=== PATIENT | male | born 1965 | race Caucasian/White ===

== ENCOUNTER 2020-04-29 11:15 | Emergency (ER) | payer OTHER, SELFPAY ==
[2019-08-09 10:26] VITALS: BMI 40.0
[2020-04-29 11:16] VITALS: BP 151/92; PULSE 77; RESP 16; TEMP 36.5; O2SAT 97; BMI 33.5
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
[2020-04-29] MEDS: Diphth,Pertuss(Acell),Tet Vac 0.5 ML Vial IM (11:35)
[2020-04-29] MEDS: BACITRACIN 15 GM Tube 1 APPLIC TOPICAL (11:36)
[2020-04-29 11:53] VITALS: BP 134/81; PULSE 62; RESP 16; O2SAT 96
== END 2020-04-29 11:54 | disposition home or self-care (01) ==
LOC: ED 11:31
PROVIDERS: Emergency Provider Emergency Medicine; PCP Family Medicine
DX: T24.001A Burn of unspecified degree of unspecified site of right lower limb, except ankle and foot, initial encounter (principal); X08.8XXA Exposure to other specified smoke, fire and flames, initial encounter
CPT/HCPCS: 90471; 90715; 99283

== ENCOUNTER → 2022-08-22 | Outpatient (CLI) | payer OTHER, SELFPAY ==
[2022-08-22 09:32] LABS: AST(SGOT) 21 U/L (15-37); Alanine Aminotransfer ALT/SGPT 39 U/L (16-61); Albumin, Serum 3.7 g/dL (3.2-5.0); Alkaline Phosphatase 119 U/L (45-117); Bilirubin, Direct 0.24 mg/dL (0.00-0.30); Cholesterol 110 mg/dL (200); Globulin 3.2 g/dL (2.2-4.2); High Density Lipoprotein 36 mg/dL; Protein, Total 6.9 g/dL (6.4-8.2); Triglycerides 131 mg/dL; Very Low Density Lipoprotein 26 mg/dL (5-40)
== END | disposition home or self-care (01) ==
LOC: LAB 08:17
PROVIDERS: PCP Family Medicine; Referring Provider Nurse Practitioner Family; Visit Provider Nurse Practitioner Family
DX: E78.00 Pure hypercholesterolemia, unspecified (principal)
CPT/HCPCS: 36415; 80061; 80076

== ENCOUNTER → 2022-10-06 | Outpatient (CLI) | payer OTHER, SELFPAY ==
--- NOTE | 2022-10-06 11:27 | STRESSREP ---
Stress Test Report Exercise myocardial perfusion stress test. 57-year-old man with a history of coronary artery disease. Stress protocol: Resting EKG demonstrates normal sinus rhythm with a rate of 70 bpm resting blood pressure is 134/82 mmHg. The patient exercised according to the regular [facility] protocol for a total duration of 6 minutes and 17 seconds attaining a maximum heart rate of 150 bpm which was 92% of max impacted heart rate the maximum workload was 7.8 metabolic equivalents. At rest there were no ST or T wave changes noted suggest ischemia and at peak exercise upsloping ST changes only were noted we did not meet the criteria for ischemia. No clinical angina was noted the test was terminated due to the target heart rate being achieved. The peak blood pressure was 186/80 mmHg. Rate-pressure product was 26,200. Myocardial perfusion protocol. 11.3 mCi of technetium 99m sestamibi was injected at rest. The patient exercised according to regular [facility] protocol for total duration of 6 minutes and 17 seconds and at peak exercise 33.7 mCi of technetium 99m sestamibi was injected stress images were obtained stress and rest images were reconstructed in comparing the short axis vertical long and horizontal long axis. Gated images were also obtained. Perfusion SPECT analysis: Review of the stress images demonstrate normal uptake of tracer noted in all areas of the myocardium. The resting images similarly demonstrate normal uptake of tracer noted in all areas of the myocardium. No areas of reversibility are noted to suggest ischemia no previous infarct was noted. A small apical defect was noted and an infarct cannot be completely excluded. Gated SPECT analysis: The gated ejection fraction is 65%. Conclusion: Normal exercise myocardial perfusion stress test at a moderate workload. Preserved ejection fraction.
== END | disposition home or self-care (01) ==
PROVIDERS: PCP Family Medicine; Visit Provider Internal Medicine Cardiovascular Disease
DX: I25.10 Atherosclerotic heart disease of native coronary artery without angina pectoris (principal); Z95.5 Presence of coronary angioplasty implant and graft
CPT/HCPCS: 78452; 93017; A9500; A4216

== ENCOUNTER → 2023-08-21 | Outpatient (CLI) | payer BC, SELFPAY ==
[2023-08-21 08:29] LABS: AST(SGOT) 24 U/L (15-37); Alanine Aminotransfer ALT/SGPT 53 U/L (16-61); Albumin, Serum 3.9 g/dL (3.2-5.0); Alkaline Phosphatase 75 U/L (45-117); Bilirubin, Direct 0.19 mg/dL (0.00-0.30); Cholesterol 139 mg/dL (200); High Density Lipoprotein 41 mg/dL; Protein, Total 6.9 g/dL (6.4-8.2); Triglycerides 215 mg/dL; Very Low Density Lipoprotein 43 mg/dL (5-40)
== END | disposition home or self-care (01) ==
LOC: LAB 07:43
PROVIDERS: PCP Family Medicine; Referring Provider Nurse Practitioner Family; Visit Provider Nurse Practitioner Family
DX: E78.00 Pure hypercholesterolemia, unspecified (principal)
CPT/HCPCS: 36415; 80061; 80076

== ENCOUNTER → 2025-05-08 | Outpatient (CLI) | payer BC, SELFPAY ==
--- OUTSIDE RECORDS SUMMARY | 2025-05-08 07:24 | XMS RPT_ITS | CCD ---
Author Organization [facility] ion [facility] Care Team Providers Care Co Founder & Ceo Name Role Phone MD Meza Cyril S Unavailable Jannette Amaya Unavailable Jannette Amaya Unavailable Rachanais Harumi Y Unavailable Unavailable Sixto Harumi Y Unavailable Unavailable Naila Waggoner Unavailable Deirdre Monzon Unavailable Unavailable Dr. Naila Waggoner Primary Care Provider [phone]. Naila Waggoner Referring Provider Dr. Saman Meza Attending Provider Dr. Saman Meza Other Provider Ms. Deirdre Monzon Attending Unava ilable Dr. Naila Waggoner Primary Care Unavaila ble Unavailable Primary Care Provider Unavailsolomon e Unavailable Primary Care Provider UnavailNAILA Gomez Primary Care Unavailable BALTAZAR RIVERA Attending Unavailable COOPERRIDER IIANDRE Attending Unavailabl e COOPERRIDER IIANDRE Referring Unavailabl e COOPERRIDER IIANDRE Referring Unavailabl e COOPERRIDER II, ANDRE Anderson Attending Unavailabl e SELF Referring Unavailable COOPERRIDER IIANDRE Attending Unavailabl e Roof MEAT CURERAneudy Attending Unavailable Care Physician, No Primary Referring Unava ilable Care Physician, No Primary Primary Care Unava ilable Medications Current Medications Medication Drug Class(es) Dates Sig (Normalized) Sig (Original) aspirin 81 mg delayed release oral tablet (9 sources) Nonsteroidal Anti-inflammatory Drug Start: 01-13-2018 Aspirin (Adult Low Dose Aspirin) 81 mg tablet,delayed release (DR/EC) Active 81 MG PO daily January 13, 2018 1:00am Start: 06-09-2014 take 1 tablet by luis a th once daily ASPIRIN 81 MG TABS One tablet by mouth daily ASPIRIN [id number] Didi Sharp RN Start: 06-09-2014 take 1 tablet by luis a th once daily ASPIRIN 81 MG TABS One tablet by mouth daily ASPIRIN Didi Sharp RN benoxinate hydrochloride 4 mg/ml / fluorescein sodium 3 mg/ml ophthalmic solution (4 sources) Diagnostic Dye Start: 06-22-2024 End: 06-22-2024 fluorescein-benoxinate 0.3-0.4 % 1 Drop (FLURESS) Start: 06-15-2024 End: 06-15-2024 fluorescein-benoxinate 0.3-0 .4 % 1 Drop (FLURESS) bimatoprost 0.1 mg/ml ophthalmic solution (3 sources) Prostaglandin Analog Start: 12-17-2020 take 1 drop(s) into the eye(s) once daily at bedtime bimatoprost (LUMIGAN) 0.01 % drop ophthalmic drops Use 1 Drop in both eyes daily at bedtime. 1 Bottle 12/17/2020 Active clopidogrel 75 mg oral tablet (20 sources) P2Y12 Platelet Inhibitor Start: 06-09-2014 End: 07-31-2023 take 75 mg by mouth once daily Clopidogrel Active 75 MG PO daily July 31, 2023 11:31am CLOPIDOGREL BISU LFATE (CLOPIDOGREL ORAL) Take by mouth. Active CLOPIDOGREL BISU LFATE (CLOPIDOGREL ORAL) Take by mouth. 0 Active metoprolol tartrate 25 mg oral tablet (20 sources) beta-Adrenergic Taylor Start: 06-27-2024 take 1 tablet by mouth every twelve hours metoprolol tartrate (Lopressor) 25 mg tablet Take 1 tablet (25 mg) by mouth every 12 hours. 06/27/2024 Active Start: 10-29-2020 metoprolol tar trate, short acting, (LOPRESSOR) 25 mg tablet once daily. 10/29/2020 Active Start: 06-09-2014 End: 07-31-2023 take 25 mg by mouth twice daily Metoprolol Tartrate Ac tive 25 MG PO TWICE A DAY July 31, 2023 11:31am predniSONE 10 mg oral tablet (1 source) Start: 08-24-2024 take 4 tablets by mouth once daily, then take 3 tablets by mouth once daily, then take 2 tablets by mouth once daily, then take 1 tablet by mouth once daily predniSONE (Deltasone) 10 mg tablet Indications: Irritant contact dermatitis due to plants, except food 4 tabs po daily x 3 days, then 3 tabs po daily x 3 days, then 2 tab po daily x3 days, then 1 tab po daily x 3 days 30 tablet 08/24/2024 Active Start: 08-24-2024 take 4 tablets by mo [facility] once daily, then take 3 tablets by mouth once daily, then take 2 tablets by mouth once daily, then take 1 tablet by mouth once daily predniSONE (Deltasone) 10 mg tablet Indications: Irritant contact dermatitis due to plants, except food 4 tabs po daily x 3 days, then 3 tabs po daily x 3 days, then 2 tab po daily x3 days, then 1 tab po daily x 3 days 30 tablet 08/24/2024 Active Propylene glycol (3 sources) propylene glycol (SYSTANE COMPLETE OPHTHALMIC) Use in eyes. Active propylene glycol (SYSTANE COMPLETE OPHTHALMIC) Use in eyes. 0 Active rosuvastatin calcium 40 mg oral tablet (6 sources) HMG-CoA Reductase Inhibitor Start: 03-28-2024 take 1 tablet by mouth in the morning rosuvastatin (Crestor) 40 mg tablet Take 1 tablet (40 mg) by mouth early in the morning.. 06/27/2024 Active Start: 09-11-2022 take 1 tablet by [facility] once daily Rosuvastatin (Crestor) 40 mg tablet Active 40 MG PO DAILY September 11, 2022 12:00am sildenafil 100 mg oral tablet (1 source) Phosphodiesterase 5 Inhibitor Start: 10-02-2023 sildenafil (Viagra) 100 mg tablet 10/02/2023 Active tetracaine hydrochloride 5 mg/ml ophthalmic solution (2 sources) Priyanka [facility]est[facility] Start: 06-22-2024 End: 06-22-2024 tetracaine 0.5 % 1 Drop (OPTICAINE) triamcinolone acetonide 5 mg/ml topical cream (1 source) Corticosteroid Start: 08-24-2024 triamcinolone (Kenalog) 0.5 % cream Indications: Irritant contact dermatitis due to plants, except food Apply topically 3 times a day. 30 g 08/24/2024 Active Start: 08-24-2024 triamcinolone (Kenalog) 0.5 % cream Indications: Irritant contact dermatitis due to plants, except food Apply topically 3 times a day. 30 g 08/24/2024 Active tropicamide 5 mg/ml ophthalmic solution (2 sources) Anticholinergic Start: 06-15-2024 End: 06-15-2024 tropicamide 0.5 % 1 Drop (MYDRIACYL) Completed/Discontinued Medications Medication Drug Class(es) Dates Sig (Normalized) Sig (Original) atorvastatin 80 mg oral tablet (20 sources) HMG-CoA Reductase Inhibitor Start: 06-09-2014 End: 09-11-2022 take 80 mg by mouth once daily Atorvastatin Discontinued 80 MG PO daily July 24, 2022 12:45pm September 11, 2022 4:03pm ATORVASTATIN ISREAL CIUM (ATORVASTATIN ORAL) Take by mouth. Active ATORVASTATIN ISREAL CIUM (ATORVASTATIN ORAL) Take by mouth. 0 Active bacitracin zinc 0.5 unt/mg topical ointment (3 sources) Start: 04-29-2020 End: 08-09-2020 Bacitracin Zinc Discontinued 1 APPLIC TOPICAL TWICE A DAY 2 April 29, 2020 12:00am August 09, 2020 4:08pm lisinopril 2.5 mg oral tablet (10 sources) Angiotensin Converting Enzyme Inhibitor Start: 06-09-2014 End: 10-31-2014 take 1 tablet by mouth once daily LISINOPRIL 2.5 MG TABS One tablet by mouth daily LISINOPRIL [id number] Saman Meza MD Problems Active Problems Problem Classification Problem Date Documented Date Episodic/Chronic Acute myocardial infarction (8 sources) Myocardial infarction; Translations: [Non-ST elevation (NSTEMI) myocardial infarction] Onset: 05-22-2014 05-26-2014 Chronic Allergic reactions (3 sources) Irritant contact dermatitis due to plant; Translations: [Irritant contact dermatitis due to plants, except food] Onset: 08-24-2024 08-24-2024 Episodic Cataract (10 sources) Bilateral pseudophakia; Translations: [Presence of intraocular lens] Onset: 11-12-2020 Resolved: 11-23-2020 06-15-2024 Chronic Coronary atherosclerosis and other heart disease (20 sources) 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; Translations: [Old myocardial infarction] Onset: 05-26-2014 01-07-2017 Chronic Disorders of lipid metabolism (11 sources) Hyperlipidemia; Translations: [Hyperlipidemia, unspecified] Onset: 05-30-2014 05-30-2014 Chronic Essential hypertension (3 sources) Essential hypertension; Translations: [Essential (primary) hypertension] Onset: 11-12-2020 11-12-2020 Chronic Glaucoma (5 sources) Ocular hypertension, bilateral; Translations: [Ocular hypertension] 06-15-2024 Chronic Inflammation; infection of eye (except that caused by tuberculosis or sexually transmitteddisease) (3 sources) Bilateral punctate keratitis of eyes; Translations: [Punctate keratitis, bilateral] Onset: 06-17-2021 06-17-2021 Chronic Other eye disorders (3 sources) Bilateral vitreous floaters; Translations: [Other vitreous opacities, bilateral] Onset: 06-17-2021 06-17-2021 Chronic Other eye disorders (3 sources) Bilateral posterior vitreous detachment; Translations: [Vitreous degeneration, bilateral] Onset: 06-17-2021 06-17-2021 Chronic Other injuries and conditions due to external causes (1 source) Foreign body in ear; Translations: [Foreign body in ear] 06-14-2022 Episodic Other nutritional; endocrine; and metabolic disorders (16 sources) Body mass index (BMI) 34.0-34.9, adult; Translations: [Body mass index (BMI) 35.0-35.9, adult] Onset: 06-09-2014 Resolved: 05-14-2015 10-31-2014 Chronic Other nutritional; endocrine; and metabolic disorders (4 sources) Body mass index (BMI) 35.0-35.9, adult; Translations: [Body mass index (BMI) 36.0-36.9, adult] Onset: 06-09-2014 07-20-2014 Chronic Other nutritional; endocrine; and metabolic disorders (2 sources) Obesity; Translations: [Obesity, unspecified] 09-11-2022 Chronic Unclassified (3 sources) Placement of stent in coronary artery ; Translations: [Presence of other cardiac implants and grafts] Onset: 05-26-2014 01-07-2017 Unclassified (6 sources) Long-term drug therapy; Translations: [Other extermination inspector (current) drug therapy] Onset: 06-23-2014 Resolved: 08-10-2015 08-10-2015 Unclassified (2 sources) LEFT EAR FOREIGN OBJECT 06-14-2022 Comment on above: LEFT EAR FOREIGN OBJ ECT Unclassified (1 source) Non-penetrating foreign body in left ear canal, initial encounter 06-14-2022 Past or Other Problems Problem Classification Problem Date Documented Da te Episodic/Chronic Blindness and vision defects (9 sources) Presbyopia; Translations: [Presbyopia] Onset: 03-24-2017 Resolved: 11-23-2020 06-15-2024 Episodic Coronary atherosclerosis and other heart disease (6 sources) Coronary angioplasty status; Translations: [Presence of coronary angioplasty implant and graft] Onset: 05-23-2014 05-26-2014 Episodic E Codes: Cut/pierceb (1 source) Other foreign body or object entering through skin, initial encounter; Translations: [Oth foreign body or object entering through skin, init] Onset: 06-14-2022 Episodic E Codes: Unspecified (1 source) Activity, other involving exterior property and land maintenance, building and construction; Translations: [Actvty,oth w exter property land maint, bldg and construct] Onset: 06-14-2022 Episodic Inflammation; infection of eye (except that caused by tuberculosis or sexually transmitteddisease) (3 sources) Allergic conjunctivitis; Translations: [Acute atopic conjunctivitis, unspecified eye] Onset: 02-19-2017 Resolved: 03-24-2017 03-24-2017 Episodic Other aftercare (9 sources) Long-term (current) use of other medications; Translations: [Other extermination inspector (current) drug therapy] Onset: 06-23-2014 Resolved: 08-10-2015 06-23-2014 Episodic Other eye disorders (3 sources) H/O: L cataract extraction; Translations: [Cataract extraction status, left eye] Onset: 11-16-2020 11-16-2020 Episodic Other eye disorders (3 sources) H/O: R cataract extraction; Translations: [Cataract extraction status, right eye] Onset: 11-24-2020 11-24-2020 Episodic Other injuries and conditions due to external causes (1 source) Foreign body in left ear, initial encounter; Translations: [Foreign body in left ear, initial encounter] Onset: 06-14-2022 Episodic Other injuries and conditions due to external causes (3 sources) Foreign body in left cornea; Translations: [Foreign body in cornea, left eye, initial encounter] Onset: 02-19-2017 Resolved: 03-24-2017 03-24-2017 Episodic Other male genital disorders (3 sources) H/O: male genital disorder; Translations: [Personal history of other diseases of male genital organs] Onset: 11-12-2020 11-12-2020 Episodic Other nutritional; endocrine; and metabolic disorders (5 sources) Body mass index (BMI) 27.0-27.9, adult; Translations: [Body mass index (BMI) 27.0-27.9, adult] Onset: 06-09-2014 06-26-2016 Episodic Superficial injury; contusion (4 sources) Superficial foreign body of left ear, initial encounter; Translations: [Abrasion of cornea of right eye] Onset: 07-31-2016 Resolved: 02-19-2017 02-19-2017 Episodic Results Test Name Value Interpretation Reference Range Facility Cardiology Visit Reporton Cardiology Visit Report [facility] [address] [place] [address] OFFICE VISIT Date of Service: 03/01/25 MR#: [id number] Acct: [id number] Name: MELITA BELLA Rep #: [id number] : 1965 Provider: DEBORAH encinas Age/Sex: 60/M Location: [facility] Status: Signed HPI HPI History of Present Illness Details: MELITA BELLA, is a 59 M who presents to the office today for a follow-up visit. He is a gentleman with a history of non-ST elevation myocardial infarction with angioplasty and stenting of his mid to distal right coronary artery in May 2014. He also has a history of hyperlipidemia. He complains of some myalgias from the Lipitor and wants to know whether he can switch to another agent. He denies chest, arm, jaw, or neck discomfort. He denies palpitations. He states bilateral lower extremity edema. He denies claudication. He denies shortness of breath with activity, shortness of breath at rest, orthopnea, or PND. He denies chronic cough. He denies significant, sudden weight gain. He denies lightheadedness, dizziness, near-syncope, or syncope. He denies blood in urine, blood in stool, or epistaxis. He denies fever with chills. He denies myalgia. He denies fatigue. His exercise level has remained stable. 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 Is patient in pain?: No Allergies No Known Allergies Allergy (Verified 03/01/25 08:31) Medications ???Medication ???Instructions ???Recorded ???Confirmed ???Type aspirin 81 mg tablet,delayed 81 mg PO QDAY 01/13/18 03/01/25 Hi story release (Adult Low Dose Aspirin) metoprolol tartrate 25 mg tablet 25 mg PO BID #180 tabs 06/27/24 Rx rosuvastatin 40 mg tablet (Crestor) 40 mg PO DAILY #90 tabs 4 03/01/25 Rx amlodipine 5 mg tablet 5 mg PO DAILY #90 tabs 03/01/25 Rx Ejection fraction %: 60 Have you fallen in the past year?: No PFSH Medical History Obesity NSTEMI (non-ST elevated myocardial infarction) (05/22/14) 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 Hyperlipidemia Surgical History History of coronary artery stent placement (05/23/14) Social History Smoking Status: Never smoker alcohol intake: current alcohol intake frequency: a few times a week Alcohol type: beer and hard liquor substance use type: does not use caffeine: Yes Type: carbonated beverages and coffee what type of physical activity do you participate in: walking frequency: 1-2 times per week duration: 45-60 minutes/day seatbelt use: sometimes do you feel safe at home: Yes ROS Const Const: Negative for fatigue, weakness, headache(s) or frequent falls Eyes Eyes: Negative for blurry vision ENT ENT: Negative for headache(s), dizziness or Nosebleed/epistaxis Cardio Chest Pain: No Palpitations: No Edema: Bilateral Muscle aches with walking: None Resp Respiratory: Positive for snoring; Negative for SOB with activity, SOB at rest or SOB orthopnea SOB lying down GI GI: Negative nausea, vomiting, heartburn, bright, red blood in stools or black,tarry stools : Negative for hematuria Musc Musc: Negative for muscle aches/ myalgia Skin Skin: Negative non-healing lesions or rash Neuro Neuro: Negative for dizziness, lightheadedness, near syncope, syncope, frequent falls, headache(s), weakness or blurry vision Endo Endo: Negative for fatigue Allergy Allergy/Immunology: Negative for rash Cardiology Exam Const Appearance: cooperative, healthy appearing, comfortable and no acute distress Nutritional Appearance: well nourished and obese Orientation: alert, awake and oriented x3 Head Head: normal to inspection Ears: hearing grossly normal bilaterally Nose: external nose normal Face and Sinus: face symmetric Mouth: moist mucous membranes Eyes General: appearance normal, both eyes and all related structures Eyelids: eyelids normal EOM: EOM intact bilaterally Neck Neck: normal visual inspection and no JVD Carotids: normal carotid upstroke Chest Chest inspection: normal inspection of the chest, symmetric chest movement and normal respiratory effort; Negative cough Auscultation: Bilateral: Clear to Auscultation Cardio Rate: regular rate Rhythm: regular rhythm Heart sounds: S1 normal and S2 normal; Negative rub, gallop or murmur GI GI: normal to ins (more content not included)... Normal [facility] Hepatic function 2000 panelo n 09-30-2024 Albumin BCP dye [Mass/Vol] 4.3 g/dL Normal 3.4-5.[address] [facility] Comment on above: Performed By: #### 2 4325-3 #### HALLMAN FELISHA ([id number]) [facility] ([facility]) [address] [place] [address] ALP [Catalytic activity/Vol] 70 U/L Normal 33-[address] [facility] Comment on above: Performed By: #### 2 4325-3 #### LEXX BAEZA ([id number]) [facility] ([facility]) [address] [place] [address] ALT With P-5'-P [Catalytic activity/Vol] 35 U/L Normal 10-[address] [facility] Comment on above: Result Comment: Susanna ents treated with Sulfasalazine may generate falsely decreased results for ALT. Performed By: #### 2 4325-3 #### LEXX BAEZA ([id number]) [facility] ([facility]) [address] [place] [address] AST With P-5'-P [Catalytic activity/Vol] 22 U/L Normal 9-[address] [facility] Comment on above: Performed By: #### 2 4325-3 #### LEXX BAEZA ([id number]) [facility] ([facility]) [address] [place] [address] Bilirubin [Mass/Vol] 0.9 mg/dL Normal 0.0-1.2 [facility] Comment on above: Performed By: #### 2 5-3 #### LEXX BAEZA ([id number]) [facility] ([facility]) [address] [place] [address] Bilirubin.direct [Mass/Vol] 0.1 mg/dL Normal 0.0-0.[address] [facility] Comment on above: Performed By: #### 2 5-3 #### LEXX BAEZA ([id number]) [facility] ([facility]) [address] [place] [address] Protein [Mass/Vol] 6.1 g/dL Low 6.4-8.2 [facility] Comment on above: Performed By: #### 2 4325-3 #### LEXX BAEZA ([id number]) [facility] ([facility]) [address] [place] [address] Lipid 1996 panelon 4 Cholesterol [Mass/Vol] 145 mg/dL Normal 0-[address] [facility] Comment on above: Result Comment: Age Desirable Borderline High High 0-19 Y 0 - 169 170 - 199 >/= 200 20-24 Y 0 - 189 190 - 224 >/= 225 >24 Y 0 - 199 200 - 239 >/= 240 All ranges are based on fasting samples. Specific therapeutic targets will vary based on patient-specific cardiac risk. Pediatric guidelines reference:Pediatrics 2011, 128(S5).Adult guidelines reference: NCEP ATPIII Guidelines,LOIS 2001, 258:2486-97 Venipuncture immediately after or during the administration of Metamizole may lead to falsely low results. Testing should be performed immediately prior to Metamizole dosing. Performed By: #### 2 4331-1 #### LEXX BAEZA ([id number]) [facility] ([facility]) [address] [place] [address] Cholesterol in HDL [Mass/Vol] 35.0 mg/dL Normal [facility] Comment on above: Result Comment: Age Very Low Low Normal High 0-19 Y < 35 < 40 40-45 ---- 20-24 Y ---- < 40 >45 ---- >24 Y ---- < 40 40-60 >60 Performed By: #### 2 4331-1 #### LEXX BAEZA ([id number]) [facility] ([facility]) [address] [place] [address] Cholesterol in LDL [Mass/Vol] 62 mg/dL Normal <=[address] [facility] Comment on above: Result Comment: Near Borderline AGE Desirable Optimal High High Very High 0-19 Y 0 - 109 --- 110-129 >/= 130 ---- 20-24 Y 0 - 119 --- 120-159 >/= 160 ---- >24 Y 0 - 99 100-129 130-159 160-189 >/=190 Performed By: #### 2 4331-1 #### LEXX BAEZA ([id number]) [facility] ([facility]) [address] [place] [address] Cholesterol in VLDL [Mass/Vol] 48 mg/dL High 0-[address] [facility] Comment on above: Performed By: #### 2 4331-1 #### LEXX BAEZA ([id number]) [facility] ([facility]) [address] [place] [address] CHOLESTEROL/HDL RATIO 4.1 Normal [facility] Comment on above: Result Comment: Ref Values Desirable < 3.4 High Risk > 5.0 Performed By: #### 2 4331-1 #### LEXX BAEZA ([id number]) [facility] ([facility]) [address] [place] [address] NON HDL CHOLESTEROL 110 mg/dL Normal 0-149 [facility] Comment on above: Result Comment: Age Desirable Borderline High High Very High 0-19 Y 0 - 119 120 - 144 >/= 145 >/= 160 20-24 Y 0 - 149 150 - 189 >/= 190 ---- >24 Y 30 mg/dL above LDL Cholesterol goal Performed By: #### 2 4331-1 #### LEXX BAEZA ([id number]) [facility] ([facility]) [facility] [place] [address] Triglyceride [Mass/Vol] 240 mg/dL High 0-[address] [facility] Comment on above: Result Comment: Age Desirable Borderline High Very High SEX:B mg/dL mg/dL mg/dL mg/dL <=14D 86-277 ---- ---- ---- 15D-365D 55-277 ---- ---- ---- 1Y-9Y 0-74 75-99 >=100 ---- 10Y-19Y 0-89 90-129 >=130 ---- 20Y-24Y 0-114 115-149 >=150 ---- >= 25Y 0-149 150-199 200-499 >=500 Venipuncture immediately after or during the administration of Metamizole may lead to falsely low results. Testing should be performed immediately prior to Metamizole dosing. Performed By: #### 2 4331-1 #### LEXX BAEZA ([id number]) [facility] ([facility]) [facility] [place] [address] OCT OPTIC NERVE CIRRUS OU (B OTH EYES)on 06-22-2024 [facility] Radiology Study observation (narrative) [facility] VISUAL FIELD 24-2 OU (BOTH E YES)on 06-22-2024 [facility] Radiology Study observation (narrative) [facility] Basophil percentageOrdered B y: Aneudy Gonzales on 08-21-2023 Bilirubin [Mass/Vol] 0.80 mg/dL 0.20-1.00 [facility] Comment on above: For patients on eltr ombopag therapy, use of Dimension [place] TBIL is not recommended. Cholesterol [Mass/Vol] 139 mg/dL <200 [facility] Comment on above: <200 mg/dL Desirable 200-240 mg/dL Borderline >240 mg/dL High Risk Protein [Mass/Vol] 6.9 g/dL 6.4-8.2 [facility] Triglyceride [Mass/Vol] 215 mg/dL <199 [facility] Comment on above: The drugs N-Acetylcy steine and Metamizole may falsely depress this assay.Serum Triglycerides Reference Interval Normal <150 mg/dL Borderline high 150 - 199 mg/dL High 200 - 499 mg/dL Very High > or = 500 mg/dL Direct bilirubinOrdered By: Aneudy Gonzales on 08-21-2023 Bilirubin.direct [Mass/Vol] 0.19 mg/dL 0.00-0.30 [facility] Laboratory - Chemistry and C hemistry - challengeOrdered By: Aneudy Gonzales on 08-21-2023 ALP [Catalytic activity/Vol] 75 U/L 45-117 [facility] ALT [Catalytic activity/Vol] 53 U/L 16-61 [facility] Globulin (S) [Mass/Vol] 3.0 g/dL 2.2-4.2 [facility] Serum or plasma albumin janice urement (mass/volume)Ordered By: Aneudy Gonzales on 08-21-2023 Albumin [Mass/Vol] 3.9 g/dL 3.2-5.0 [facility] Serum or plasma cholesterol in HDL measurement (mass/volume)Ordered By: Aneudy Gonzales on 08-21-2023 Cholesterol in HDL [Mass/Vol] 41 mg/dL >40 [facility] Comment on above: The drugs N-Acetylcy steine and Metamizole may falsely depress this assay. Reference Range HDL <40 mg/dL Low HDL Cholesterol HDL >or= 60 mg/dL High HDL Cholesterol Serum or plasma cholesterol in VLDL measurement (mass/volume)Ordered By: Aneudy Gonzales on 08-21-2023 Cholesterol in VLDL [Mass/Vol] 43 mg/dL 5-40 [facility] Serum or plasma low density lipoprotein (LDL) cholesterol measurement (mass/volume)Ordered By: Aneudy Gonzales on 08-21-2023 Cholesterol in LDL [Mass/Vol] 55 mg/dL 0-130 [facility] Thin prep Papanicolaou smear with manual screeningOrdered By: Aneudy Gonzales on 08-21-2023 Thin prep Papanicolaou smear with manual screening 24 U/L 15-37 [facility] Basophil percentageon 2021 Bilirubin [Mass/Vol] 1.00 mg/dL 0.20-1.00 [facility] Work Phone: Comment on above: For patients on eltr ombopag therapy, use of Dimension [place] TBIL is not recommended. Cholesterol [Mass/Vol] 110 mg/dL <200 [facility] Work Phone: Comment on above: <200 mg/dL Desirable 200-240 mg/dL Borderline >240 mg/dL High Risk Protein [Mass/Vol] 6.9 g/dL 6.4-8.2 [facility] Work Phone: Triglyceride [Mass/Vol] 131 mg/dL <199 [facility] Work Phone: Comment on above: The drugs N-Acetylcy steine and Metamizole may falsely depress this assay.Serum Triglycerides Reference Interval Normal <150 mg/dL Borderline high 150 - 199 mg/dL High 200 - 499 mg/dL Very High > or = 500 mg/dL Direct bilirubinon 2 Bilirubin.direct [Mass/Vol] 0.24 mg/dL 0.00-0.30 [facility] Work Phone: Laboratory - Chemistry and C hemistry - challengeon 08-22-2022 ALP [Catalytic activity/Vol] 119 U/L 45-117 [facility] Work Phone: ALT [Catalytic activity/Vol] 39 U/L 16-61 [facility] Work Phone: Globulin (S) [Mass/Vol] 3.2 g/dL 2.2-4.2 [facility] Work Phone: Serum or plasma albumin janice urement (mass/volume)on 08-22-2022 Albumin [Mass/Vol] 3.7 g/dL 3.2-5.0 [facility] Work Phone: Serum or plasma cholesterol in HDL measurement (mass/volume)on 08-22-2022 Cholesterol in HDL [Mass/Vol] 36 mg/dL >40 [facility] Work Phone: Comment on above: The drugs N-Acetylcy steine and Metamizole may falsely depress this assay. Reference Range HDL <40 mg/dL Low HDL Cholesterol HDL >or= 60 mg/dL High HDL Cholesterol Serum or plasma cholesterol in VLDL measurement (mass/volume)on 08-22-2022 Cholesterol in VLDL [Mass/Vol] 26 mg/dL 5-40 [facility] Work Phone: Serum or plasma low density lipoprotein (LDL) cholesterol measurement (mass/volume)on 08-22-2022 Cholesterol in LDL [Mass/Vol] 48 mg/dL 0-130 [facility] Work Phone: Thin prep Papanicolaou smear with manual screeningon 08-22-2022 Thin prep Papanicolaou smear with manual screening 21 U/L 15-37 [facility] Work Phone: Provider Note - ED v3on 08-0 Provider Note - ED v3 Provider Note: Chart Review: HISTORY OF PRESENTING ILLNESS MELITA is a 57 year old Male and was seen by me at 14-Jun-2022 14:11. The historian is the patient. Triage Information: Most recent Vital Sign Value Date PAST MEDICAL HISTORY ALLERGIES/INTOLERANC ES: No Known Allergies HEALTH HISTORY: Medical History Name:[place] (myocardial infarction) Code:I21.9 Name:Hypertension Code:I10 Name:Hypercholestero lemia Code:E78.00 Family history: no pertinent history. Social history: no pertinent history. OUTPATIENT MEDICATIONS: Home Medications Review Status for Reconciliation: Complete Med Status: Patient Currently Takes Medications Drug Name: atorvastatin 80 mg oral tablet Instructions: 1 tab(s) orally once a day Drug Name: metoprolol tartrate 25 mg oral tablet Instructions: 1 tab(s) orally 2 times a day Drug Name: clopidogrel 75 mg oral tablet Instructions: 1 tab(s) orally once a day Drug Name: Aspir 81 oral delayed release tablet Instructions: 1 tab(s) orally once a day SIGNIFICANT EVENTS: Clinical Events Description:Surgical Procedure Additional Notes:1. Cataract Extraction with Intraocular Lens Implant Left Eye Description:Surgical Procedure Additional Notes:1. Cataract Extraction with Intraocular Lens Implant Left Eye Description:Surgical Procedure Additional Notes:1. Cataract Extraction with Toric Intraocular Lens Implant Right Eye Description:Surgical Procedure Additional Notes:1. Cataract Extraction with Toric Intraocular Lens Implant Right Eye Also has history of 2 cardiac stents. No other known significant events or other known past surgical history. CRITICAL CARE VITAL SIGNS: T PRBP SpO2O2(LPM) %FiO2 Method 14-Jun-2022 13:32:[id number] /85 95 MDM MDM/ED COURSE: This note was generated with voice recognition software and may contain errors including spelling, grammar, syntax, and misrecognization of what was dictated CHIEF COMPLAINT foreign body in L ear HISTORY OF PRESENT ILLNESS Pt presents today for evaluation of foreign body in his left ear. Reports he was power-washing at home today, and had ear buds in his ears - reports he removed the ear buds at one point, and felt like he had some dirt in his ear - realized the rubber part of the ear bud had actually gotten stuck in his ear. Reports he has been unable to get it out. Denies any pain or drainage from the ear, and denies any headaches or dizziness, but reports hearing is a little muffled. No other c/o. REVIEW OF SYMPTOMS 10 systems reviewed negative with exception of history of present illness listed above PHYSICAL EXAMINATION General: Pleasant male; alert and oriented, in no acute distress. Sitting comfortably on exam table. Eyes: PERRL; no photophobia. HENT: Normocephalic. R ear canal/TM unremarkable; L ear canal with a black, rubber object (c/w report of rubber piece from an ear bud) just inside the external ear canal; unable to visualize TM. Canal otherwise appears unremarkable. S/p extraction of FB, ear canal unremarkable; TM intact and also unremarkable. Nares patent. Respiratory: Lungs are clear to auscultation; no wheezes, rhonchi, or rales. Respirations unlabored and without reported discomfort, Breath sounds are equal, Symmetrical chest wall expansion. Cardiovascular: Regular rate and rhythm, normal S1-S2. No m/r/g. Neurologic: Alert and oriented, no focal deficits, no motor or sensory deficits. Cognition and Speech: Oriented, Speech clear and coherent. Psychiatric: Cooperative, Appropriate mood & affect. MEDICAL DECISION MAKING Course: Worsening; stable. Impression/Plan: Rubber portion of ear bud extracted from L ear canal with a lighted ear curette and tweezers. Patient tolerated well; procedure was completed without any indication of complication or discomfort; TM intact and unremarkable s/p extraction of FB. Advised should f/u with PCP if any problems develop. Patient verbalized understanding of discussion and agreed with plan of care; questions were encouraged and answered. Problem: foreign body in L ear canal Data reviewed/analyzed: No labwork, imaging or testing outside of physical exam done at today's visit. No previous documents reviewed for today's visit. Risk: Low risk of morbidity/mortality. Problems addressed: foreign body in ear canal Education/patient instructions: See above. DISPOSITION Diagnosis/Annotation : ED Dx Name:Non-penetrating foreign body in left ear canal, initial encounter Code:S00.452A Disposition: discharged Type: home CONSULT CRITICAL CARE TIME Is this a critically ill patient: no Electronic Signatures: Deirdre Monzon (SEWING MACHINE OPERATOR-RECEIVER STOCKER) (Signed 15-Jun-2022 09:19) Authored: HPI, PMH, Results/Vital Signs, MDM/ED Course, Clinical Impression, Attestation, Chart Review, Scores Last Updated: 15-Jun-2022 09: (more content not included)... Normal [facility] HEPATIC FUNCTION PANELon Albumin [Mass/Vol] 4.2 g/dL Normal 3.4 - 5.0 [facility] Comment on above: Performed By: #### H EPFP #### [address] [address] ALP [Catalytic activity/Vol] 85 U/L Normal 33 - 120 [facility] Comment on above: Performed By: #### H EPFP #### [address] [address] ALT [Catalytic activity/Vol] 30 U/L Normal 10 - 52 [facility] Comment on above: Result Comment: Susanna ents treated with Sulfasalazine may generate falsely decreased results for ALT. Performed By: #### H EPFP #### [address] [address] AST [Catalytic activity/Vol] 22 U/L Normal 9 - 39 [facility] Comment on above: Performed By: #### H EPFP #### [address] [address] Bilirubin [Mass/Vol] 1.0 mg/dL Normal 0.0 - 1.2 [facility] Comment on above: Performed By: #### H EPFP #### [address] [address] Bilirubin.indirect [Mass/Vol] 0.1 mg/dL Normal 0.0 - 0.3 [facility] Comment on above: Performed By: #### H EPFP #### [address] [address] Protein [Mass/Vol] 6.2 g/dL Low 6.4 - 8.2 [facility] Comment on above: Performed By: #### H EPFP #### [address] [address] LIPID PANEL (CORONARY RISK 2 )on 03-03-2022 Cholesterol [Mass/Vol] 134 mg/dL Normal 0 - 199 [facility] Comment on above: Result Comment: . AGE DESIRABLE BORDERLINE HIGH HIGH 0-19 Y 0 - 169 170 - 199 >/= 200 20-24 Y 0 - 189 190 - 224 >/= 225 >24 Y 0 - 199 200 - 239 >/= 240 All ranges are based on fasting samples. Specific therapeutic targets will vary based on patient-specific cardiac risk. . Pediatric guidelines reference:Pediatrics 2011, 128(S5). Adult guidelines reference: NCEP ATPIII Guidelines, LOIS 2001, 258:2486-97 . Venipuncture immediately after or during the administration of Metamizole may lead to falsely low results. Testing should be performed immediately prior to Metamizole dosing. Performed By: #### L IPID #### [address] [address] Cholesterol in HDL [Mass/Vol] 35.0 mg/dL Abnormal [facility] Comment on above: Result Comment: . AGE VERY LOW LOW NORMAL HIGH 0-19 Y < 35 < 40 40-45 ---- 20-24 Y ---- < 40 >45 ---- >24 Y ---- < 40 40-60 >60 . Performed By: #### L IPID #### [address] [address] Cholesterol in LDL [Mass/Vol] 66 mg/dL Normal 0 - 99 [facility] Comment on above: Result Comment: . NEAR BORD AGE DESIRABLE OPTIMAL HIGH HIGH VERY HIGH 0-19 Y 0 - 109 --- 110-129 >/= 130 ---- 20-24 Y 0 - 119 --- 120-159 >/= 160 ---- >24 Y 0 - 99 100-129 130-159 160-189 >/=190 . Performed By: #### L IPID #### [address] [address] Cholesterol in VLDL [Mass/Vol] 33 mg/dL Normal 0 - 40 [facility] Comment on above: Performed By: #### L IPID #### [address] [address] Cholesterol.total/Cho lesterol in HDL [Mass ratio] 3.8 {ratio} Normal [facility] Comment on above: Result Comment: REF VALUES DESIRABLE < 3.4 HIGH RISK > 5.0 Performed By: #### L IPID #### [address] [address] Triglyceride [Mass/Vol] 164 mg/dL High 0 - 149 [facility] Comment on above: Result Comment: . AGE DESIRABLE BORDERLINE HIGH HIGH VERY HIGH 0 D-90 D 19 - 174 ---- ---- ---- 91 D- 9 Y 0 - 74 75 - 99 >/= 100 ---- 10-19 Y 0 - 89 90 - 129 >/= 130 ---- 20-24 Y 0 - 114 115 - 149 >/= 150 ---- >24 Y 0 - 149 150 - 199 200- 499 >/= 500 . Venipuncture immediately after or during the administration of Metamizole may lead to falsely low results. Testing should be performed immediately prior to Metamizole dosing. Performed By: #### L IPID #### [address] [address] Hep Func Panelon 07-26-2019 Albumin [Mass/Vol] 4.4 g/dL Normal 3.4-5.0 [facility] Comment on above: Performed By: #### 2 [id number] #### [employer] [address] [place], [place] [id number] Albumin/Globulin [Mass ratio] 2.1 {ratio} High 1.1-1.9 [facility] Comment on above: Performed By: #### 2 [id number] #### [employer] [address] [place] [address] Alk Phos 93 Int._Unit/L Normal 33-120 [facility] Comment on above: Performed By: #### 2 [id number] #### [employer] [address] [place] [address] ALT [Catalytic activity/Vol] 43 Int._Unit/L Normal 10-52 [facility] Comment on above: Performed By: #### 2 [id number] #### [employer] [address] [place] [address] AST [Catalytic activity/Vol] 29 Int._Unit/L Normal 9-39 [facility] Comment on above: Performed By: #### 2 [id number] #### [employer] [address] [place] [address] Bili Direct 0.12 mg/dL Normal 0.00-0.30 [facility] Comment on above: Performed By: #### 2 [id number] #### [employer] [address] [place] [address] Bili Indirect 1.08 mg/dL Normal [facility] Comment on above: Result Comment: No e stablished ranges available for the indirect bilirubin Performed By: #### 2 [id number] #### [employer] [address] [place] [address] Bili Total 1.20 mg/dL Normal 0.00-1.20 [facility] Comment on above: Performed By: #### 2 [id number] #### [employer] [address] [place] [address] Globulin (S) [Mass/Vol] 2.0 g/dL Normal 2.0-4.0 [facility] Comment on above: Performed By: #### 2 [id number] #### [employer] [address] [place] [address] Protein [Mass/Vol] 6.5 g/dL Normal 6.4-8.2 [facility] Comment on above: Performed By: #### 2 [id number] #### [employer] [address] [place] [address] Lipid Profileon 07-26-2019 Cholesterol [Mass/Vol] 163 mg/dL Normal 0-199 [facility] Comment on above: Result Comment: TOTKisha Koch CHOLEESTEROL: <200 NORMAL 200 - 239 BORDERLINE HIGH >240 HIGH Performed By: #### 3 [id number] #### [employer] [address] [place] [address] Cholesterol in HDL [Mass/Vol] 36 mg/dL Low 40-60 [facility] Comment on above: Performed By: #### 3 [id number] #### [employer] [address] [place] [address] Cholesterol in LDL [Mass/Vol] 80 mg/dL Normal 0-130 [facility] Comment on above: Result Comment: <100 OPTIMAL 100-129 NEAR / ABOVE OPTIMAL 130-159 BORDERLINE HIGH 160-189 HIGH >190 VERY HIGH CALC LDL NOT VALID WHEN TRIGLYCERIDE IS >400 MG/DL Performed By: #### 3 [id number] #### [employer] [address] [place] [address] Cholesterol in VLDL [Mass/Vol] 47 mg/dL High 0-40 [facility] Comment on above: Performed By: #### 3 [id number] #### [employer] [address] [place] [address] Triglyceride [Mass/Vol] 234 mg/dL High 0-149 [facility] Comment on above: Result Comment: AGE DESIRABLE BORDERLINE HIGH 91 D - 9 Y 0 - 74 75 - 99 > 100 10 - 19 Y 0 - 89 90 - 129 > 130 20 -24 Y 0 - 114 115 - 149 > 150 > 25 0 - 149 150 - 199 200 - 499 Performed By: #### 3 [id number] #### [employer] [address] [place] [address] Hep Func Panelon 01-07-2019 Albumin [Mass/Vol] 4.3 g/dL Normal 3.4-5.0 [facility] Comment on above: Performed By: #### 2 [id number] #### [employer] [address] [place] [address] Albumin/Globulin [Mass ratio] 2.0 {ratio} High 1.1-1.9 [facility] Comment on above: Performed By: #### 2 [id number] #### [employer] [address] [place] [address] Alk Phos 86 Int._Unit/L Normal 33-120 [facility] Comment on above: Performed By: #### 2 [id number] #### [employer] [address] [place] [address] ALT [Catalytic activity/Vol] 37 Int._Unit/L Normal 10-52 [facility] Comment on above: Performed By: #### 2 [id number] #### [employer] [address] [place] [address] AST [Catalytic activity/Vol] 20 Int._Unit/L Normal 9-39 [facility] Comment on above: Performed By: #### 2 [id number] #### [employer] [address] [place] [address] Bili Direct 0.18 mg/dL Normal 0.00-0.30 [facility] Comment on above: Performed By: #### 2 [id number] #### [employer] [address] [place] [address] Bili Indirect 1.23 mg/dL Normal [facility] Comment on above: Result Comment: No e stablished ranges available for the indirect bilirubin Performed By: #### 2 [id number] #### [employer] [address] [place] [address] Bili Total 1.41 mg/dL High 0.00-1.20 [facility] Comment on above: Performed By: #### 2 [id number] #### [employer] [address] [place], [place] [address] Globulin (S) [Mass/Vol] 2.0 g/dL Normal 2.0-4.0 [facility] Comment on above: Performed By: #### 2 [id number] #### [employer] [address] [place] [address] Protein [Mass/Vol] 6.5 g/dL Normal 6.4-8.2 [facility] Comment on above: Performed By: #### 2 [id number] #### [employer] [address] [place] [address] Lipid Profileon 01-07-2019 Cholesterol [Mass/Vol] 145 mg/dL Normal 0-199 [facility] Comment on above: Result Comment: TOTA L CHOLEESTEROL: <200 NORMAL 200 - 239 BORDERLINE HIGH >240 HIGH Performed By: #### 3 [id number] #### [employer] [address] [place] [address] Cholesterol in HDL [Mass/Vol] 36 mg/dL Low 40-60 [facility] Comment on above: Performed By: #### 3 [id number] #### [employer] [address] [place] [address] Cholesterol in LDL [Mass/Vol] 77 mg/dL Normal 0-130 [facility] Comment on above: Result Comment: <100 OPTIMAL 100-129 NEAR / ABOVE OPTIMAL 130-159 BORDERLINE HIGH 160-189 HIGH >190 VERY HIGH CALC LDL NOT VALID WHEN TRIGLYCERIDE IS >400 MG/DL Performed By: #### 3 [id number] #### [employer] [address] [place] [address] Cholesterol in VLDL [Mass/Vol] 32 mg/dL Normal 0-40 [facility] Comment on above: Performed By: #### 3 [id number] #### [employer] [facility] [place] [address] Triglyceride [Mass/Vol] 160 mg/dL High 0-149 [facility] Comment on above: Result Comment: AGE DESIRABLE BORDERLINE HIGH 91 D - 9 Y 0 - 74 75 - 99 > 100 10 - 19 Y 0 - 89 90 - 129 > 130 20 -24 Y 0 - 114 115 - 149 > 150 > 25 0 - 149 150 - 199 200 - 499 Performed By: #### 3 [id number] #### [employer] [address] [place] [address] 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 Albumin mass conc 4.3 g/dL Invalid Interpretation Code [employer] Work Phone: [phone] Alkaline phosphatase (ALP) 83 U/L Invalid Interpretation Code [employer] Work Phone: [phone] ALP enzyme act/vol (Bld) 83 U/L Invalid Interpretation Code [employer] Work Phone: [phone] ALT enzyme act/vol 40 U/L Invalid Interpretation Code [employer] Work Phone: [phone] AST enzyme act/vol 25 U/L Invalid Interpretation Code [employer] Work Phone: [phone] Bilirubin mass conc 1.3 mg/dL High [employer] Work Phone: [phone] Bilirubin.direct mass conc mg/dL Invalid Interpretation Code [employer] Work Phone: [phone] Bilirubin.indirect mass conc >1.2 Invalid Interpretation Code [employer] Work Phone: [phone] Cholesterol in HDL mass conc 34 mg/dL Low [employer] Work Phone: [phone] Cholesterol in LDL mass conc 84 mg/dL Invalid Interpretation Code [employer] Work Phone: [phone] Cholesterol mass conc 155 mg/dL Invalid Interpretation Code [employer] Work Phone: [phone] Cholesterol.total/Cho lesterol in HDL mass ratio 5 {ratio} Invalid Interpretation Code [employer] Work Phone: [phone] Lipoprotein.pre-beta mass conc 37 mg/dL Invalid Interpretation Code [employer] Work Phone: [phone] Protein mass conc 6.7 g/dL Invalid Interpretation Code [employer] Work Phone: [phone] Triglyceride mass conc 184 mg/dL High [employer] Work Phone: [phone] Office Visiton 07-14-2017 Documentation of current medications (procedure) Done Invalid Interpretation Code [employer] Work Phone: [phone] Fall risk assessment Fall risk assessment Invali d Interpretation Code [employer] Work Phone: [phone] Protein mass conc Done Invalid Interpretation Code [facility] Work Phone: [phone] 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 01-23-2017 Alanine aminotransferase (ALT) 34 U/L Invalid Interpretation Code [facility] Work Phone: [phone] Albumin 4.2 g/dL Invalid Interpretation Code [facility] Work Phone: [phone] Alkaline phosphatase (ALP) 86 U/L Invalid Interpretation Code [facility] Work Phone: [phone] Aspartate aminotransferase (AST) 24 U/L Invalid Interpretation Code [facility] Work Phone: [phone] Bilirubin (direct) 0.16 mg/dL Invalid Interpretation Code [facility] Work Phone: [phone] Bilirubin (total) 1.4 mg/dL High [facility] Work Phone: [phone] bilirubin, serum, indirect 1.2 mg/dL Invalid Interpretation Code [facility] Work Phone: [phone] Cholesterol 126 mg/dL Invalid Interpretation Code [facility] Work Phone: [phone] Cholesterol to HDL Ratio 4 {ratio} Invalid Interpretation Code [facility] Work Phone: [phone] HDL Cholesterol 36 mg/dL Low [facility] Work Phone: [phone] LDL Cholesterol 62 mg/dL Invalid Interpretation Code [facility] Work Phone: [phone] Protein 6.7 g/dL Invalid Interpretation Code [facility] Work Phone: [phone] Triglyceride 138 mg/dL Invalid Interpretation Code [facility] Work Phone: [phone] very low density lipoproteins 28 mg/dL Invalid Interpretation Code [facility] Work Phone: [phone] Office Visiton 01-15-2017 Fall risk assessment No Invalid Interpretation Code [facility] Work Phone: [phone] Office Visit: [facility] 06-26-20 16 Dietary management education, guidance, and counseling (procedure) yes Invalid Interpretation Code [facility] Work Phone: [phone] Tobacco smoking status NHIS Never smoker Invalid Interpretation Code [facility] Work Phone: [phone] Tobacco use CPHS Never smoker Invalid Interpretation Code [facility] Work Phone: [phone] Replaced Document: David MARTÍNEZ Observationson 06-26-2016 EKG QRS axis -21 deg Invalid Interpretation Code [employer] Work Phone: [phone] electrocardiogram interpretation Sinus Rhythm WITHIN NORMAL LIMITS Invalid Interpretation Code [employer] Work Phone: [phone] GE use only - for [employer] import when terms are not otherwise specified 404 ms Invalid Interpretation Code [employer] Work Phone: [phone] Interpretation Sinus Rhythm WITHIN NORMAL LIMITS Invalid Interpretation Code [employer] Work Phone: [phone] P [place] 27 deg Invalid Interpretation Code [employer] Work Phone: [phone] P wave axis, electrocardiogram 27 deg Invalid Interpretation Code [employer] Work Phone: [phone] MD Interval 162 ms Invalid Interpretation Code [employer] Work Phone: [phone] MD interval, electrocardiogram 162 ms Invalid Interpretation Code [employer] Work Phone: [phone] Pulse (Heart Rate) 68 /min Invalid Interpretation Code [employer] [facility] [employer] Work Phone: [phone] QRS axis, electrocardiogram -21 deg Invalid Interpretation Code [employer] Work Phone: [phone] QRS Duration 100 ms Invalid Interpretation Code [employer] [facility] [employer] Work Phone: [phone] QRS duration, electrocardiogram 100 ms Invalid Interpretation Code [employer] [facility] [employer] Work Phone: [phone] QT Interval new path ms Invalid Interpretation Code [employer] [facility] [employer] Work Phone: [phone] QT interval, electrocardiogram new path ms Invalid Interpretation Code [employer] Work Phone: [phone] QTc Vides 404 ms Invalid Interpretation Code [employer] Work Phone: [phone] T [place] -1 deg Invalid Interpretation Code [facility] [employer] Work Phone: [phone] T wave axis, electrocardiogram -1 deg Invalid Interpretation Code [facility] [employer] Work Phone: [phone] 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-10-2015 Globulin 2.7 g/dL Invalid Interpretation Code [facility] Work Phone: [phone] Globulin mass conc (S) 2.7 g/dL [facility] Work Phone: [phone] Office Visit: [facility] 05-14-20 15 Tobacco smoking status NHIS Former Invalid Interpretation Code [facility] Work Phone: [phone] Office Visiton 11-16-2014 Left ventricular Ejection fraction 60 % Invalid Interpretation Code [facility] Work Phone: [phone] Office Visiton 10-31-2014 cardiac risk group C Invalid Interpretation Code [facility] Work Phone: [phone] General cardiovascular disease 10Y risk [#] [place] N/A Invalid Interpretation Code [facility] Work Phone: [phone] Replaced Document: [facility] CG Observationson 06-09-2014 Pulse (Heart Rate) 387 ms Invalid Interpretation Code [facility] Work Phone: [phone] 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 05-22-2014 Anion gap 7 mmol/L Invalid Interpretation Code [facility] Work Phone: [phone] Anion gap 4 molar conc 7 Invalid Interpretation Code [facility] Work Phone: [phone] Anion gap molar conc 7 mmol/L [facility] Work Phone: [phone] basophils as percent of blood leukocytes, manual count 0.3 % Invalid Interpretation Code [facility] Work Phone: [phone] BUN/Creatinine Ratio 17.3 mg/mg Invalid Interpretation Code [facility] Work Phone: [phone] Calcium 8.5 mg/dL Invalid Interpretation Code [facility] Work Phone: [phone] Chloride 105 mmol/L Invalid Interpretation Code [facility] Work Phone: [phone] CO2 25.0 mmol/L Invalid Interpretation Code [facility] Work Phone: [phone] CO2 ppres (BldV) 25.0 mmol/L Invalid Interpretation Code [facility] Work Phone: [phone] Creatinine 1.1 mg/dL Invalid Interpretation Code [facility] Work Phone: [phone] eGFR (non-black) 84 mL/min/{1.73_m2} Invalid Interpretation Code [facility] Work Phone: [phone] eGFR (non-black) 75 mL/min/{1.73_m2} Invalid Interpretation Code [facility] Work Phone: [phone] eosinophils as percent of blood leukocytes, manual count 1.0 % Invalid Interpretation Code [facility] Work Phone: [phone] Erythrocyte distribution width Ratio (RBC) 12.6 % [facility] Work Phone: [phone] Erythrocytes (RBC) 4.74 10*6/uL Invalid Interpretation Code [facility] Work Phone: [phone] Glomerular Filtration Rate 75 mL/min/1.73m2 Invalid Interpretation Code [facility] Work Phone: [phone] Glucose 115 mg/dL [facility] Work Phone: [phone] Glucose mass conc 115 mg/dL High [facility] Work Phone: [phone] Hematocrit (HCT) 42.4 % Invalid Interpretation Code [facility] Work Phone: [phone] Hematocrit Volume Fraction (Bld) 42.4 % [facility] Work Phone: [phone] Hemoglobin (HGB) 15.1 g/dL Invalid Interpretation Code [facility] Work Phone: [phone] Lymphocytes/100 leukocytes 26.1 % Invalid Interpretation Code [facility] Work Phone: [phone] Lymphocytes/100 WBC (Bld) 26.1 % [facility] Work Phone: [phone] MCH 31.9 pg Invalid Interpretation Code [facility] Work Phone: [phone] MCH Entitic mass (RBC) 31.9 pg [facility] Work Phone: [phone] MCHC 35.6 g/dL Invalid Interpretation Code [facility] Work Phone: [phone] MCHC mass conc (RBC) 35.6 g/dL [facility] Work Phone: [phone] MCV 89.5 fL Invalid Interpretation Code [facility] Work Phone: [phone] MCV Entitic volume (RBC) 89.5 fL [facility] Work Phone: [phone] Monocytes/100 leukocytes 7.0 % Invalid Interpretation Code [facility] Work Phone: Monocytes/100 WBC (Bld) 7.0 % [facility] Work Phone: [phone] neutrophils, band form as percent of blood leukocytes, manual count 65.4 % Invalid Interpretation Code [facility] Work Phone: [phone] Platelet mean volume Entitic volume (Bld) 10.2 fL [facility] Work Phone: [phone] Platelets 187 10*3/mm3 Invalid Interpretation Code [facility] Work Phone: [phone] Platelets #/vol (Bld) 187 10*3/mm3 [facility] Work Phone: [phone] PMV by Lesly 10.2 fL Invalid Interpretation Code [facility] Work Phone: [phone] Potassium 4.2 mmol/L Invalid Interpretation Code [facility] Work Phone: [phone] RBC #/vol (Bld) 4.74 10*6/uL [facility] Work Phone: [phone] RDW-CA 12.6 % Invalid Interpretation Code [facility] Work Phone: [phone] Sodium 137 mmol/L Invalid Interpretation Code [facility] Work Phone: [phone] Urea nitrogen 19 mg/dL High [facility] Work Phone: [phone] WBC #/vol (Bld) 6.3 10*3/uL [facility] Work Phone: [phone] WBC (Leukocytes) 6.3 10*3/uL Invalid Interpretation Code [facility] Work Phone: [phone] Vital Signs Date Time Vital Sign Value Performing Clinician Facility 08-24-2024 10:13040 Body height 180.3 cm Baltazar Rivera [employer] Work Phone: [facility] 08-24-2024 10:13040 Body mass index (BMI) [Ratio] 39.05 kg/m2 Baltazar Rivera [employer] Work Phone: [facility] 08-24-2024 10:13040 Body temperature 98.49 [degF] Baltazar Rivera SEWING MACHINE OPERATOR-RECEIVER STOCKER Work Phone: [facility] 08-24-2024 10:13-0400 Body weight 127.01 kg Baltazar Rivera SEWING MACHINE OPERATOR-RECEIVER STOCKER Work Phone: [facility] 08-24-2024 10:13-0400 Diastolic blood pressure 88 mm[Hg] Baltazar Rivera SEWING MACHINE OPERATOR-RECEIVER STOCKER Work Phone: [facility] 08-24-2024 10:13-0400 Heart rate 62 /min Baltazar Rivera SEWING MACHINE OPERATOR-RECEIVER STOCKER Work Phone: [facility] 08-24-2024 10:13-0400 Systolic blood pressure 150 mm[Hg] Baltazar Rivera SEWING MACHINE OPERATOR-RECEIVER STOCKER Work Phone: [facility] 09-11-2022 15:31-0400 Body height 180.[address] Naila Waggoner Work Phone: [facility] Work Phone: 09-11-2022 15:29-0400 Body mass index (BMI) [Ratio] 37 kg/m2 Dr. Naila Waggoner Work Phone: [facility] Work Phone: 09-11-2022 15:29-0400 Body weight 120.[address] Naila Waggoner Work Phone: [facility] Work Phone: 09-11-2022 15:29-0400 Diastolic blood pressure 97 mm[Hg] Dr. Naila Waggoner Work Phone: [facility] Work Phone: 09-11-2022 15:29-0400 Heart rate 74 /min Dr. Naila Waggoner Work Phone: [facility] Work Phone: 09-11-2022 15:29-0400 Respiratory rate 16 /min Dr. Naila Waggoner Work Phone: [facility] Work Phone: 09-11-2022 15:29-0400 SaO2% (BldA) [Mass fraction] 98 % Dr. Naila Waggoner Work Phone: [facility] Work Phone: 09-11-2022 15:29-0400 Systolic blood pressure 150 mm[Hg] Dr. Naila Waggoner Work Phone: [facility] Work Phone: 06-14-2022 15:32-0400 Body height 180.3 cm Naila Waggoner Other Phone: [facility] 06-14-2022 15:32-0400 Body temperature 97.7 [degF] Naila Waggoner Other Phone: [facility] 06-14-2022 15:32-0400 Diastolic blood pressure 85 mm[Hg] Naila Waggoner Other Phone: [facility] 06-14-2022 15:32-0400 Heart rate 65 /min Naila Waggoner Other Phone: [facility] 06-14-2022 15:32-0400 Respiratory rate 16 /min Naila Waggoner Other Phone: [facility] 06-14-2022 15:32-0400 SaO2% (BldA) [Mass fraction] 95 % Naila Waggoner Other Phone: [facility] 06-14-2022 15:32-0400 Systolic blood pressure 135 mm[Hg] Naila Waggoner Other Phone: [facility] 07-14-2017 15:54-0400 BMI (Body Mass Index) 38.35 kg/m2 Jnanette Amaya [facility] Work Phone: 07-14-2017 15:54-0400 BP Diastolic 70 mm[Hg] Jannette Amaya [facility] Work Phone: 07-14-2017 15:54-0400 BP Systolic 120 mm[Hg] [facility] Work Phone: 07-14-2017 15:54-0400 Height 180.34 cm [facility] Work Phone: 07-14-2017 15:54-0400 Pulse (Heart Rate) 68 /min [facility] Work Phone: 07-14-2017 15:54-0400 Respiratory Rate 20 /min [facility] Work Phone: 07-14-2017 15:54-0400 Weight 124.74 kg [facility] Work Phone: 06-26-2016 15:55-0400 Heart rate 68 /min Harkymberly DeFinindia [facility] Work Phone: 06-26-2016 15:47-0400 BSA (Body Surface Area) 2.39 m2 [facility] Work Phone: 06-09-2014 16:07-0400 Heart rate 387 ms Harumi DeFinindia [facility] Work Phone: Encounters Encounter Date Encounter Type Care Provider Facility Start: 03-01-2025 End: 03-01-2025 ambulatory Aneudy Gonzales NP Facility:[facility] Start: 09-30-2024 End: 09-30-[address] [facility] Start: 09-21-2024 End: 09-21-2024 ambulatory ANDRE CARROLL II Facility:[facility] Start: 09-21-2024 End: 09-21-2024 Patient encounter procedure Andre Carroll OD Work Phone: Optometry Comment on above: Bilateral ocular hyp ertension (Primary Dx); Glaucoma suspect of both eyes Start: 08-24-2024 End: 08-24-2024 Patient encounter procedure Baltazar Rivera SEWING MACHINE OPERATOR-RECEIVER STOCKER Work Phone: [facility] Comment on above: Irritant contact camilo matitis due to plants, except food (Primary Dx) Start: 08-24-2024 End: 08-24-2024 ambulatory NAILA WAGGONER [facility] Start: 06-22-2024 End: 06-22-2024 ambulatory ANDRE Justin KELLERVIDA II Facility:[facility] Start: 06-22-2024 End: 06-22-2024 Patient encounter procedure Andre Rotimur OD Work Phone: Optometry Comment on above: Bilateral ocular hyp ertension (Primary Dx); Glaucoma suspect of both eyes Start: 06-15-2024 End: 06-15-2024 ambulatory SELF Facility:[facility] Start: 06-15-2024 End: 06-15-2024 Patient encounter procedure Andre Carroll OD Work Phone: Optometry Comment on above: Presbyopia (Primary Dx); Hyperopia, bilateral; Regular astigmatism of both eyes; Pseudophakia of both eyes; Bilateral ocular hypertension Start: 08-21-2023 End: 08-21-2023 ambulatory [facility] Work Phone: Start: 08-21-2023 End: 08-21-2023 Patient encounter procedure [facility] Work Phone: Start: 10-06-2022 Non-patient / Non-visit Dr. Melvin Work Phone: [facility] Start: 10-06-2022 End: 10-06-[address] Naila Waggoner Work Phone: [facility] Work Phone: Start: 10-06-2022 End: 10-06-[address] Naila Waggoner Work Phone: [facility] Start: 09-11-2022 End: 09-11-[address] Naila Waggoner Work Phone: [facility] Start: 08-22-2022 End: 08-22-2022 ambulatory [facility] Work Phone: Start: 08-22-2022 End: 08-22-2022 Patient encounter procedure [facility] Start: 06-14-2022 End: 06-14-2022 Emergency department patient visit Deirdre Monzon [facility] Procedures Date Procedure Procedure Detail Performing Clinician Start: 06-22-2024 End: 06-22-2024 Visual field xm uni/bi w/interp extended exam Andre Carroll OD Work Phone: Start: 10-06-2022 Radionuclide imaging of perfusion of myocardium under exercise stress Dr. Naila Waggoner Work Phone: Start: 03-03-2022 Lipid 1996 panel - Serum or Plasma Andre Carroll II, OD Work Phone: Start: 08-04-2017 End: 08-08-2017 *Hepatic Function Panel Max Abel Start: 08-04-2017 End: 08-08-2017 Lipid 1996 panel - Serum or Plasma Saman Meza MD Start: 08-04-2017 End: 08-08-2017 *Hepatic Function Panel Max Abel Start: 08-04-2017 End: 08-08-2017 Lipid panel [AGGREGATE] Max Abel Start: 07-14-2017 End: 07-14-2017 Follow Up Appt 6 months Max Abel Start: 07-14-2017 End: 07-14-2017 GEMMA Meza MD Start: 07-14-2017 End: 07-20-2017 Nuclear stress test -exercise Saman Meza MD Start: 07-14-2017 End: 07-14-2017 Follow Up Appt 6 months Max Abel Start: 07-14-2017 End: 07-14-2017 GEMMA Meza MD Start: 07-14-2017 End: 07-20-2017 Nuclear stress test -exercise Saman Meza MD Start: 01-15-2017 End: 01-26-2017 *Hepatic Function Panel Max Abel Start: 01-15-2017 End: 01-15-2017 Follow Up Appt 6 months Max Abel Start: 01-15-2017 End: 01-26-2017 Lipid 1996 panel - Serum or Plasma Saman Meza MD Start: 01-15-2017 End: 01-15-2017 MMM Saman Meza MD Start: 01-15-2017 End: 01-26-2017 *Hepatic Function Panel Max Abel Start: 01-15-2017 End: 01-15-2017 Follow Up Appt 6 months Max Abel Start: 01-15-2017 End: 01-26-2017 Lipid panel [AGGREGATE] Max Abel Start: 01-15-2017 End: 01-15-2017 GEMMA Meza MD Start: 06-26-2016 End: 06-26-2016 Dietary management education, guidance, and counseling Umer Henson Start: 06-26-2016 End: 06-26-2016 BUSINESS DEVELOPMENT Vera Joseph PA-C Work Phone: Start: 06-26-2016 End: 06-26-2016 Ecg routine ecg w/least 12 lds w/i&r Vera Joseph PA-C Work Phone: Start: 06-26-2016 End: 06-26-2016 Follow Up Appt 6 months Vera welsh PA-C Work Phone: Start: 06-26-2016 End: 07-14-2017 Follow Up Appt Other Vera koch PA-C Work Phone: Start: 06-26-2016 End: 06-26-2016 BUSINESS DEVELOPMENT Vera Joseph PA-C Work Phone: Start: 06-26-2016 End: 06-26-2016 Electrocardiogram, complete Vera Caruso PA-C Work Phone: Start: 06-26-2016 End: 06-26-2016 Follow Up Appt 6 months Vera welsh PA-C Work Phone: Start: 06-26-2016 End: 07-14-2017 Follow Up Appt Other Vera koch PA-C Work Phone: Start: 02-11-2016 End: 07-14-2017 *Hepatic Function Panel Max Abel Start: 02-11-2016 End: 07-14-2017 Lipid 1996 panel - Serum or Plasma Saman Meza MD Start: 02-11-2016 End: 07-14-2017 *Hepatic Function Panel Max Abel Start: 02-11-2016 End: 07-14-2017 Lipid panel [AGGREGATE] Max Abel Start: 11-27-2015 End: 06-12-2016 Follow Up Appt 6 months Max Abel Start: 11-27-2015 End: 06-12-2016 GEMMA Meza MD Start: 11-27-2015 End: 06-12-2016 Follow Up Appt 6 months Max Abel Start: 11-27-2015 End: 06-12-2016 GEMMA Meza MD Start: 07-11-2015 End: 08-10-2015 *Hepatic Function Panel Max Abel Start: 07-11-2015 End: 08-10-2015 Lipid 1996 panel - Serum or Plasma Saman Meza MD Start: 07-11-2015 End: 08-10-2015 *Hepatic Function Panel Max Abel Start: 07-11-2015 End: 08-10-2015 Lipid panel [AGGREGATE] Max Abel Start: 05-14-2015 End: 05-14-2015 BUSINESS DEVELOPMENT Vera Joseph PA-C Work Phone: Start: 05-14-2015 End: 05-15-2015 Documentation of current medications Vera Joseph PA-C Work Phone: Start: 05-14-2015 End: 05-14-2015 Follow Up Appt 6 months Vera welsh PA-C Work Phone: Start: 05-14-2015 End: 05-14-2015 BUSINESS DEVELOPMENT Vera Joseph PA-C Work Phone: Start: 05-14-2015 End: 05-15-2015 Documentation of current medications Vera Joseph PA-C Work Phone: Start: 05-14-2015 End: 05-14-2015 Follow Up Appt 6 months Vera welsh PA-C Work Phone: Start: 12-10-2014 End: 01-08-2015 *Hepatic Function Panel Max Abel Start: 12-10-2014 End: 01-08-2015 Lipid 1996 panel - Serum or Plasma Saman Meza MD Start: 12-10-2014 End: 01-08-2015 *Hepatic Function Panel Max Abel Start: 12-10-2014 End: 01-08-2015 Lipid panel [AGGREGATE] Max Abel Start: 10-31-2014 End: 11-14-2014 Echocardiography Saman Meza MD Start: 10-31-2014 End: 10-31-2014 Follow Up Appt 6 months Max Abel Start: 10-31-2014 End: 10-31-2014 MMMax Meza MD Start: 10-31-2014 End: 11-13-2014 Nuclear stress test -exercise Saman Meza MD Start: 10-31-2014 End: 11-14-2014 Echocardiography Saman Meza MD Start: 10-31-2014 End: 10-31-2014 Follow Up Appt 6 months Max Abel Start: 10-31-2014 End: 10-31-2014 MMMax Meza MD Start: 10-31-2014 End: 11-13-2014 Nuclear stress test -exercise Saman Meza MD Start: 07-20-2014 End: 07-20-2014 BUSINESS DEVELOPMENT Vera Joseph PA-C Work Phone: Start: 07-20-2014 End: 07-20-2014 Follow Up Appt 3 months Vera welsh PA-C Work Phone: Start: 07-20-2014 End: 07-20-2014 LOULOU Joseph PA-C Work Phone: Start: 07-20-2014 End: 07-20-2014 Follow Up Appt 3 months Vera welsh PA-C Work Phone: Start: 06-23-2014 End: 06-23-2014 *Hepatic Function Panel Vera welsh PA-C Work Phone: Start: 06-23-2014 End: 06-23-2014 Lipid 1996 panel - Serum or Plasma Vera Joseph PA-C Work Phone: Start: 06-23-2014 End: 06-23-2014 *Hepatic Function Panel Vera welsh PA-C Work Phone: Start: 06-23-2014 End: 06-23-2014 Lipid panel [AGGREGATE] Vera welsh PA-C Work Phone: Start: 06-09-2014 End: 06-09-2014 BUSINESS DEVELOPMENT Vera Joseph PA-C Work Phone: Start: 06-09-2014 End: 06-28-2014 Ecg routine ecg w/least 12 lds w/i&r Vera Joseph PA-C Work Phone: Start: 06-09-2014 End: 06-09-2014 Follow Up Appt 6 weeks Vera robins PA-C Work Phone: Start: 06-09-2014 End: 06-09-2014 BUSINESS DEVELOPMENT Vera Joseph PA-C Work Phone: Start: 06-09-2014 End: 06-28-2014 Electrocardiogram, complete Vera Caruso PA-C Work Phone: Start: 06-09-2014 End: 06-09-2014 Follow Up Appt 6 weeks Vera robins PA-C Work Phone: Start: 05-26-2014 Placement of stent in coronary artery Mutilple coronary stents Cashumi DeFinindia Start: 05-26-2014 Placement of stent in coronary artery Mutilple coronary stents Harumi DeFinindia Start: 05-23-2014 History of placement of stent for coronary artery disease History of coronary artery stent placement Plan of Treatment Date Care Activity Detail Author Start: 01-13-2039 RSV High Risk: (Elde rly (60+) or Population) (1 - 1-dose 75+ series) RSV High Risk: (Elderly (60+) or Population) (1 - 1-dose 75+ series) [facility] Start: 01-13-2039 RSV Vaccine (1 - 1-d ose 75+ series) RSV Vaccine (1 - 1-dose 75+ series) [facility] Start: 04-29-2030 Urine microalbumin profile DTa P,Tdap,Td Vaccine (2 - Td or Tdap) [facility] Start: 03-03-2027 Lipid panel [facility] Start: 10-13-2025 Screening for malign ant neoplasm of colon [facility] Start: 06-21-2025 End: 06-21-2025 Patient encounter procedure 06/21/2025 10:30 AM EDT Office Visit [facility] [address] [place] [address] Andre Carroll II, OD [address] [place] [address] Exam - ocular hypertension/Glaucoma suspect Self pay Optometry Comment on above: Exam - ocular hypert ension/Glaucoma suspect Self pay Start: 09-22-2024 End: 09-22-2024 Patient encounter procedure 09/22/2024 8:00 AM EST Office Visit [facility] [address] [place] [address] Andre Carroll II, OD [address] [place] [address] 3 month pressure check/[facility] Comment on above: 3 month pressure heaven ck/[facility] Start: 07-10-2024 COVID-19 Vaccine ( season) COVID-19 Vaccine ( season) [facility] Start: 07-10-2024 Influenza vaccination Influenza Vacc ine (#1) [facility] Start: 06-22-2024 End: 06-22-2024 Patient encounter procedure 06/22/2024 8:00 AM EDT Office Visit [facility] [address] [place] [address] Andre Carroll II, OD [address] [place] [address] 1 week pressure check/[facility] Comment on above: 1 week pressure chec k/[facility] Start: 2024 RSV Vaccine (1 - 1-d ose 60+ series) RSV Vaccine (1 - 1-dose 60+ series) [facility] Start: 07-10-2023 Covid-19 Vaccine ( season) Covid-19 Vaccine ( season) [facility] Start: 11-22-2020 H/O: R cataract extraction His tory of cataract surgery, right Date: 22-Nov-2020 [facility] Start: 11-15-2020 H/O: L cataract extraction His tory of cataract surgery, left Date: 15-Nov-2020 [facility] Start: 01-13-2019 Prostate specific an tigen measurement Prostate Cancer Screening Discussion [facility] Start: 02-08-2018 End: 08-13-2017 *Hepatic Function Panel *Hepatic Function Panel [facility] Work Phone: Start: 02-08-2018 End: 08-13-2017 Lipid 1996 panel *Lipid Profile CC PCP [facility] Work Phone: Start: 01-15-2018 End: 01-15-2018 Appointment Appointment [facility] Work Phone: Start: 08-04-2017 End: 08-08-2017 *Hepatic Function Panel *Hepatic Function Panel [facility] Work Phone: Start: 08-04-2017 End: 08-08-2017 Lipid 1996 panel *Lipid Profile CC PCP [facility] Work Phone: Start: 08-04-2017 End: 08-08-2017 *Hepatic Function Panel *Hepatic Function Panel [facility] Work Phone: Start: 08-04-2017 End: 08-08-2017 Lipid panel [AGGREGATE] *Lipid Profile CC PCP [facility] Work Phone: Start: 07-14-2017 End: 07-14-2017 Follow Up Appt 6 months Follow Up Appt 6 months [facility] Work Phone: Start: 07-14-2017 End: 07-14-2017 MMM MMM [facility] Work Phone: Start: 07-14-2017 End: 07-14-2017 Nuclear stress test -exercise Nuclear stress test -exercise [facility] Work Phone: Start: 07-14-2017 End: 07-14-2017 Follow Up Appt 6 months Follow Up Appt 6 months [facility] Work Phone: Start: 07-14-2017 End: 07-14-2017 MMM MMM [facility] Work Phone: Start: 07-14-2017 End: 07-14-2017 Nuclear stress test -exercise Nuclear stress test -exercise [facility] Work Phone: Start: 01-15-2017 End: 01-26-2017 *Hepatic Function Panel *Hepatic Function Panel [facility] Work Phone: Start: 01-15-2017 End: 01-15-2017 Follow Up Appt 6 months Follow Up Appt 6 months [facility] Work Phone: Start: 01-15-2017 End: 01-26-2017 Lipid 1996 panel *Lipid Profile CC PCP [facility] Work Phone: Start: 01-15-2017 End: 01-15-2017 MMM MMM [facility] Work Phone: Start: 01-15-2017 End: 01-26-2017 *Hepatic Function Panel *Hepatic Function Panel [facility] Work Phone: Start: 01-15-2017 End: 01-15-2017 Follow Up Appt 6 months Follow Up Appt 6 months [facility] Work Phone: Start: 01-15-2017 End: 01-26-2017 Lipid panel [AGGREGATE] *Lipid Profile CC PCP [facility] Work Phone: Start: 01-15-2017 End: 01-15-2017 MMM MM [facility] Work Phone: Start: 06-26-2016 End: 06-26-2016 [facility] Work Phone: Start: 06-26-2016 End: 06-26-2016 Ecg routine ecg w/least 12 lds w/i&r EKG (In office) [facility] Work Phone: Start: 06-26-2016 End: 06-26-2016 Follow Up Appt 6 months Follow Up Appt 6 months [facility] Work Phone: Start: 06-26-2016 End: 07-14-2017 Follow Up Appt Other Follow Up Appt Other [facility] Work Phone: Start: 06-26-2016 End: 06-26-2016 [facility] Work Phone: Start: 06-26-2016 End: 06-26-2016 Electrocardiogram, complete EKG (In office) [facility] Work Phone: Start: 06-26-2016 End: 06-26-2016 Follow Up Appt 6 months Follow Up Appt 6 months [facility] Work Phone: Start: 06-26-2016 End: 07-14-2017 Follow Up Appt Other Follow Up Appt Other [facility] Work Phone: Start: 02-11-2016 End: 07-14-2017 *Hepatic Function Panel *Hepatic Function Panel [facility] Work Phone: Start: 02-11-2016 End: 07-14-2017 Lipid 1996 panel *Lipid Profile CC PCP [facility] Work Phone: Start: 02-11-2016 End: 07-14-2017 *Hepatic Function Panel *Hepatic Function Panel [facility] Work Phone: Start: 02-11-2016 End: 07-14-2017 Lipid panel [AGGREGATE] *Lipid Profile CC PCP [facility] Work Phone: Start: 11-27-2015 End: 06-12-2016 Follow Up Appt 6 months Follow Up Appt 6 months [facility] Work Phone: Start: 11-27-2015 End: 06-12-2016 MMM MMM [facility] Work Phone: Start: 11-27-2015 End: 06-12-2016 Follow Up Appt 6 months Follow Up Appt 6 months [facility] Work Phone: Start: 11-27-2015 End: 06-12-2016 MM MM [facility] Work Phone: Start: 07-11-2015 End: 08-10-2015 *Hepatic Function Panel *Hepatic Function Panel [facility] Work Phone: Start: 07-11-2015 End: 08-10-2015 Lipid 1996 panel *Lipid Profile CC PCP [facility] Work Phone: Start: 07-11-2015 End: 08-10-2015 *Hepatic Function Panel *Hepatic Function Panel [facility] Work Phone: Start: 07-11-2015 End: 08-10-2015 Lipid panel [AGGREGATE] *Lipid Profile CC PCP [facility] Work Phone: Start: 05-14-2015 End: 05-14-2015 BUSINESS DEVELOPMENT BUSINESS DEVELOPMENT [facility] Work Phone: Start: 05-14-2015 End: 05-14-2015 Follow Up Appt 6 months Follow Up Appt 6 months [facility] Work Phone: Start: 05-14-2015 End: 05-14-2015 BUSINESS DEVELOPMENT BUSINESS DEVELOPMENT [facility] Work Phone: Start: 05-14-2015 End: 05-14-2015 Follow Up Appt 6 months Follow Up Appt 6 months [facility] Work Phone: Start: 12-10-2014 End: 01-08-2015 *Hepatic Function Panel *Hepatic Function Panel [facility] Work Phone: Start: 12-10-2014 End: 01-08-2015 Lipid 1996 panel *Lipid Profile CC PCP [facility] Work Phone: Start: 12-10-2014 End: 01-08-2015 *Hepatic Function Panel *Hepatic Function Panel [facility] Work Phone: Start: 12-10-2014 End: 01-08-2015 Lipid panel [AGGREGATE] *Lipid Profile CC PCP [facility] Work Phone: Start: 10-31-2014 End: 10-31-2014 Echocardiography Echocardiogram (complete) [facility] Work Phone: Start: 10-31-2014 End: 10-31-2014 Follow Up Appt 6 months Follow Up Appt 6 months [facility] Work Phone: Start: 10-31-2014 End: 10-31-2014 MMM MMM [facility] Work Phone: Start: 10-31-2014 End: 10-31-2014 Nuclear stress test -exercise Nuclear stress test -exercise [facility] Work Phone: Start: 10-31-2014 End: 10-31-2014 Echocardiography Echocardiogram (complete) [facility] Work Phone: Start: 10-31-2014 End: 10-31-2014 Follow Up Appt 6 months Follow Up Appt 6 months [facility] Work Phone: Start: 10-31-2014 End: 10-31-2014 MMM MMM [facility] Work Phone: Start: 10-31-2014 End: 10-31-2014 Nuclear stress test -exercise Nuclear stress test -exercise [facility] Work Phone: Start: 07-20-2014 End: 07-20-2014 BUSINESS DEVELOPMENT BUSINESS DEVELOPMENT [facility] Work Phone: Start: 07-20-2014 End: 07-20-2014 Follow Up Appt 3 months Follow Up Appt 3 months [facility] Work Phone: Start: 07-20-2014 End: 07-20-2014 BUSINESS DEVELOPMENT BUSINESS DEVELOPMENT [facility] Work Phone: Start: 07-20-2014 End: 07-20-2014 Follow Up Appt 3 months Follow Up Appt 3 months [facility] Work Phone: Start: 06-23-2014 End: 06-23-2014 *Hepatic Function Panel *Hepatic Function Panel [facility] Work Phone: Start: 06-23-2014 End: 06-23-2014 Lipid 1996 panel *Lipid Profile CC PCP [facility] Work Phone: Start: 06-23-2014 End: 06-23-2014 *Hepatic Function Panel *Hepatic Function Panel [facility] Work Phone: Start: 06-23-2014 End: 06-23-2014 Lipid panel [AGGREGATE] *Lipid Profile CC PCP [facility] Work Phone: Start: 06-09-2014 End: 06-09-2014 BUSINESS DEVELOPMENT BUSINESS DEVELOPMENT [facility] Work Phone: Start: 06-09-2014 End: 06-28-2014 Ecg routine ecg w/least 12 lds w/i&r EKG (In office) [facility] Work Phone: Start: 06-09-2014 End: 06-09-2014 Follow Up Appt 6 weeks Follow Up Appt 6 weeks [facility] Work Phone: Start: 06-09-2014 End: 06-09-2014 BUSINESS DEVELOPMENT BUSINESS DEVELOPMENT [facility] Work Phone: Start: 06-09-2014 End: 06-28-2014 Electrocardiogram, complete EKG (In office) [facility] Work Phone: Start: 06-09-2014 End: 06-09-2014 Follow Up Appt 6 weeks Follow Up Appt 6 weeks [facility] Work Phone: Start: 01-13-2014 Shingrix Vaccine (1 of 2) Goldberg grix Vaccine (1 of 2) [facility] Start: 01-13-2014 Zoster Vaccines (1 of 2) Zoste r Vaccines (1 of 2) [facility] Start: 12-13-2009 MMR Vaccines (1 of 1 - Standard series) MMR Vaccines (1 of 1 - Standard series) [facility] Start: 01-13-2009 Diabetes Screening Diabetes Screenin g [facility] Start: 01-13-2009 Screening for malign ant neoplasm of colon [facility] Start: 01-13-1986 DTaP/Tdap/Td Vaccine s (1 - Tdap) DTaP/Tdap/Td Vaccines (1 - Tdap) [facility] Start: 01-13-1983 Urine microalbumin profile DTa P,Tdap,Td Vaccine (1 - Tdap) [facility] Start: 01-13-1982 Annual PCP Team Accounting Assistant eliza Disease Visit Annual PCP Team Chronic Disease Visit [facility] Start: 01-13-1982 Anxiety Screening Anxiety Screening [facility] Start: 01-13-1982 BP Controlled (<130/80) BP Controlle d (<130/80) [facility] Start: 01-13-1982 Depression Screening Depression Scre ening [facility] Start: 01-13-1982 Hepatitis C screening Hepatitis C Sc y[place]any [facility] Start: 01-13-1982 HIV screening HIV Screening [facility] Start: 1965 HIV screening HIV Screening [facility] Start: 1965 Screening for malign ant neoplasm of colon [facility] Start: 1965 Yearly Adult Physical Yearly Adult P [facility] History of placement of stent for coronary artery disease History of coronary artery stent placement [facility] Work Phone: Immunizations Immunization Date Immunization Notes Care Provider Rossana menjivar 08-11-2022 influenza virus vaccine, unspecified formulation Andre Carroll II, OD Work Phone: [facility] 04-29-2020 tetanus toxoid, reduced diphtheria toxoid, and acellular pertussis vaccine, adsorbed [facility] Payers Date Payer Category Payer Self-pay [id number] 2024 Managed Care (Private) [employer] [id number] 2024 Unknown [id number] 2023 Unknown [id number] 2019 Unknown 2015 Unknown [id number] 1964 Unknown [id number] 1964 Unknown [id number] 1964 Unknown [id number] Unknown [id number] Social History Date Type Detail Facility [facility] Start: 09-11-2021 End: 09-11-2022 Tobacco smoking consumption unknown [facility] Start: 1965 Sex Assigned At Male [facility] Start: 07-31-2016 Tobacco smoking status NHIS Never smoked tobacco [facility] Start: 07-31-2016 Tobacco use and exposure Former smokeless tobacco user [facility] Start: 06-15-2024 End: 09-21-2024 Alcohol intake Current drinker of alcohol (finding) [facility] Start: 06-17-2021 End: 09-21-2024 History of Social function [facility] Start: 06-17-2021 End: 09-21-2024 Tobacco use panel [facility] National Score (1-100), lower number is lower risk 89 [facility] Start: 1965 Sex Assigned At Not on file [facility] Start: 08-14-2024 End: 08-24-2024 Exposure to SARS-CoV-2 (event) Not sure [facility] Medical Equipment Procedure Code Equipment Code Equipment Origin al Text Equipment Identifier Dates Lens, Intraocula r, [id number] 17.0 Sandra Case [id number] Start: 11-15-2020 Comment on above: Description: Convert ed from [facility]. Please see archived information for full log information. Lens, Intraocula r [id number] 17.0 Case [id number] Start: 11-22-2020 Comment on above: Description: Convert ed from [facility]. Please see archived information for full log information. Clinical Notes 05-23-2014 to 09-21-2024 Patient InstructionsAndre Carroll II, OD - 09/21/2024 9:17 AM ESTMoBRANDIE Hernandez - 08/24/2024 10:10 AM EDTPatient InstructionsAndre Carroll II, OD - 06/22/2024 9:04 AM EDT Note Date & Type Note Facility 09-21-2024 Instructions Andre Carroll II, OD - 09/21/2024 9:21 AM EST Assessment and Plan H40.053 Bilateral ocular hypertension (primary encounter diagnosis) H40.003 Glaucoma suspect of both eyes Comment: Glaucoma suspect both eyes due to ocular hypertension, optic nerve cupping, positive family history (mother) and previously noted NFL anomalies. Thick corneas both eyes. Stable optic nerve appearance today. Intraocular pressures within established range. Gonio shows open angles today. Discussed recommended options of consult with Dr. Live or continued observation. Will recheck in 07/03. Discussed need for continued close observation to minimize chance of future vision loss. I have confirmed and edited as necessary the relevant HPI, ophthalmic history, ROS, and the neuro exam findings as obtained by others. I have seen and examined Melita Bella. I have discussed the case and the management of this patient's care with the Resident/Fellow, if applicable. I also have reviewed and agree with the assessment and plan as stated above and agree with all of its relevant components. documented in this encounter [facility] 09-21-2024 Note HNO ID: [id number] Author: ANDRE CARROLL II, OD Service: ? Author Type: PARTS CLASSIFIER Type: Progress Notes Filed: 09/21/2024 09:22 Note Text: Assessment and Plan H40.053 Bilateral ocular hypertension (primary encounter diagnosis) H40.003 Glaucoma suspect of both eyes Comment: Glaucoma suspect both eyes due to ocular hypertension, optic nerve cupping, positive family history (mother) and previously noted NFL anomalies. Thick corneas both eyes. Stable optic nerve appearance today. Intraocular pressures within established range. Gonio shows open angles today. Discussed recommended options of consult with Dr. Live or continued observation. Will recheck in 07/03. Discussed need for continued close observation to minimize chance of future vision loss. I have confirmed and edited as necessary the relevant HPI, ophthalmic history, ROS, and the neuro exam findings as obtained by others. I have seen and examined eMlita Bella. I have discussed the case and the management of this patient's care with the Resident/Fellow, if applicable. I also have reviewed and agree with the assessment and plan as stated above and agree with all of its relevant components. [facility] 09-21-2024 History of Presen t illness Narrative Assessment and Plan H40.053 Bilateral ocular hypertension (primary encounter diagnosis) H40.003 Glaucoma suspect of both eyes Comment: Glaucoma suspect both eyes due to ocular hypertension, optic nerve cupping, positive family history (mother) and previously noted NFL anomalies. Thick corneas both eyes. Stable optic nerve appearance today. Intraocular pressures within established range. Gonio shows open angles today. Discussed recommended options of consult with Dr. Live or continued observation. Will recheck in 07/03. Discussed need for continued close observation to minimize chance of future vision loss. I have confirmed and edited as necessary the relevant HPI, ophthalmic history, ROS, and the neuro exam findings as obtained by others. I have seen and examined Melita Bella. I have discussed the case and the management of this patient's care with the Resident/Fellow, if applicable. I also have reviewed and agree with the assessment and plan as stated above and agree with all of its relevant components. documented in this encounter [facility] 08-24-2024 History of Presen t illness Narrative 59 y.o. male is for evaluation of rash to left upper arm and scattered over bilateral cheeks that began few days ago. Patient states he was cutting wood with poison sabrina exposure. Has tried rubbing alcohol [id number] but no improvement in symptoms. No fevers, drainage, streaking, body aches, fatigue or any other associated symptom or complaint. Vitals: 08/24/24 1013 BP: 150/88 Pulse: 62 Temp: 36.9 C (98.5 F) No Known Allergies Medication Documentation Review Audit Reviewed by Charo Mitchell MA ([employer]) on 08/24/24 at 1012 Medication Order Taking? Sig Documenting Provider Last Dose Status metoprolol tartrate (Lopressor) 25 mg tablet [id number] Yes Take 1 tablet (25 mg) by mouth every 12 hours. Historical Provider, Active rosuvastatin (Crestor) 40 mg tablet [id number] Yes Take 1 tablet (40 mg) by mouth early in the morning.. Historical Provider, Active sildenafil (Viagra) 100 mg tablet [id number] Yes Historical Provider, Active No past medical history on file. No past surgical history on file. ROS See HPI Physical Exam Vitals and nursing note reviewed. Constitutional: Appearance: Normal appearance. Skin: General: Skin is warm and dry. Findings: Rash (mildly erythematous vesicular rash with some areas of honey crusted drainage to left upper arm, and small patches scattered over bilateral cheeks without significant edema, drainage or streaking) present. Neurological: General: No focal deficit present. Mental Status: He is alert and oriented to person, place, and time. Psychiatric: Mood and Affect: Mood normal. Behavior: Behavior normal. Assessment/Plan/MDM Melita Tavares was seen today for rash. Diagnoses and all orders for this visit: Irritant contact dermatitis due to plants, except food (Primary) - triamcinolone (Kenalog) 0.5 % cream; Apply topically 3 times a day. - predniSONE (Deltasone) 10 mg tablet; 4 tabs po daily x 3 days, then 3 tabs po daily x 3 days, then 2 tab po daily x3 days, then 1 tab po daily x 3 days Discussed OTC remedies to use and worsening symptoms to monitor for. Patient's clinical presentation is otherwise unremarkable at this time. Patient is discharged with instructions to follow-up with primary care or seek emergency medical attention for worsening symptoms or any new concerns. I did personally review Melita's past medical history, surgical history, social history, as well as family history (when relevant). In this case, I also oversaw the his drug management by reviewing his medication list, allergy list, as well as the medications that I prescribed during the UC course and/or recommended as an out-patient (including possible OTC medications such as acetaminophen, NSAIDs , etc). After reviewing the items above, I did not look at previous medical documentation, such as recent hospitalizations, office visits, and/or recent consultations with PCP/specialist. SDOH: Another factor that I considered in Melita's care was his Social Determinants of Health (SDOH). During this UC encounter, he did not have social determinants of health. Those SDOH influencing Melita's care are: none Baltazar Rivera CNP [facility] [phone] documented in this encounter [facility] Work Phone: 06-22-2024 Instructions Andre Carroll II, OD - 06/22/2024 9:07 AM EDT Assessment and Plan H40.053 Bilateral ocular hypertension (primary encounter diagnosis) H40.003 Glaucoma suspect of both eyes Comment: Discussed treatment options. Will continue observation. Recheck Intraocular pressure and ON appearance in 3 months. Glaucoma suspect both eyes due to ocular hypertension, optic nerve cupping, positive family history (mother) and noted NFL anomalies. Baseline Visual field and nerve fiber analysis today. Repeat in one year. No treatment indicated at this time. Discussed need for continued close observation to minimize chance of future vision loss. I have confirmed and edited as necessary the relevant HPI, ophthalmic history, ROS, and the neuro exam findings as obtained by others. I have seen and examined Melita A Long. I have discussed the case and the management of this patient's care with the Resident/Fellow, if applicable. I also have reviewed and agree with the assessment and plan as stated above and agree with all of its relevant components. documented in this encounter [facility] 06-22-2024 Note HNO ID: [id number] Author: ANDRE CARROLL II, OD Service: ? Author Type: PARTS CLASSIFIER Type: Progress Notes Filed: 06/22/2024 09:08 Note Text: Assessment and Plan H40.053 Bilateral ocular hypertension (primary encounter diagnosis) H40.003 Glaucoma suspect of both eyes Comment: Discussed treatment options. Thick corneas. Will continue observation. Recheck Intraocular pressure and ON appearance in 3 months. Glaucoma suspect both eyes due to ocular hypertension, optic nerve cupping, positive family history (mother) and noted NFL anomalies. Baseline Visual field and nerve fiber analysis today. Repeat in one year. No treatment indicated at this time. Discussed need for continued close observation to minimize chance of future vision loss. I have confirmed and edited as necessary the relevant HPI, ophthalmic history, ROS, and the neuro exam findings as obtained by others. I have seen and examined Melita Bella. I have discussed the case and the management of this patient's care with the Resident/Fellow, if applicable. I also have reviewed and agree with the assessment and plan as stated above and agree with all of its relevant components. [facility] 06-22-2024 History of Presen t illness Narrative Assessment and Plan H40.053 Bilateral ocular hypertension (primary encounter diagnosis) H40.003 Glaucoma suspect of both eyes Comment: Discussed treatment options. Thick corneas. Will continue observation. Recheck Intraocular pressure and ON appearance in 3 months. Glaucoma suspect both eyes due to ocular hypertension, optic nerve cupping, positive family history (mother) and noted NFL anomalies. Baseline Visual field and nerve fiber analysis today. Repeat in one year. No treatment indicated at this time. Discussed need for continued close observation to minimize chance of future vision loss. I have confirmed and edited as necessary the relevant HPI, ophthalmic history, ROS, and the neuro exam findings as obtained by others. I have seen and examined Melita Bella. I have discussed the case and the management of this patient's care with the Resident/Fellow, if applicable. I also have reviewed and agree with the assessment and plan as stated above and agree with all of its relevant components. documented in this encounter [facility] 06-22-2024 Note Date of Procedure 06/22/2024. It Application Architect Information Literacy Coordinator: sk. Start time: 8:26 AM. Stop time: 8:34 AM. Reliability Right Eye Good. Left Eye Good. Interpretation Right Eye Normal. Left Eye Normal. Interval Change Right Eye Initial. Left Eye Initial. Notes Repeat testing in 6-12 months. [facility] 06-22-2024 Note Date of Procedure 06/22/2024. It Application Architect Information Literacy Coordinator: sk. Start time: 8:34 AM. Stop time: 8:35 AM. Quality Right Eye Good. Left Eye Good. NFL Interpretation Right Eye Inferior loss. Left Eye Normal. Ganglion Cell Layer Thickness Right Eye Inferior loss. Left Eye Other ocular pathology influencing GCL interpretation. Interval Change Right Eye Initial. Left Eye Initial. Notes Repeat testing in 6-12 months. [facility] 06-15-2024 Instructions Andre Carroll II, OD - 06/15/2024 10:12 AM EDT Assessment and Plan H52.4 Presbyopia (primary encounter diagnosis) H52.03 Hyperopia, bilateral H52.223 Regular astigmatism of both eyes Comment: Glasses power stable. Update as desired. Z96.1 Pseudophakia of both eyes Comment: Posterior chamber intraocular lenses are well positioned and clear. H40.053 Bilateral ocular hypertension Comment: Glaucoma suspect both eyes due to ocular hypertension and positive family history (mother) of glaucoma. Recheck Intraocular pressures in 1 week with further workup if still elevated. Hold on treatment. Discussed need for continued close observation to minimize chance of future vision loss. I have confirmed and edited as necessary the relevant HPI, ophthalmic history, ROS, and the neuro exam findings as obtained by others. I have seen and examined Melita Bella. I have discussed the case and the management of this patient's care with the Resident/Fellow, if applicable. I also have reviewed and agree with the assessment and plan as stated above and agree with all of its relevant components. documented in this encounter [facility] 06-15-2024 Note HNO ID: [id number] Author: ANDRE CARROLL II, OD Service: ? Author Type: PARTS CLASSIFIER Type: Progress Notes Filed: 06/15/2024 10:12 Note Text: Assessment and Plan H52.4 Presbyopia (primary encounter diagnosis) H52.03 Hyperopia, bilateral H52.223 Regular astigmatism of both eyes Comment: Glasses power stable. Update as desired. Z96.1 Pseudophakia of both eyes Comment: Posterior chamber intraocular lenses are well positioned and clear. H40.053 Bilateral ocular hypertension Comment: Glaucoma suspect both eyes due to ocular hypertension and positive family history (mother) of glaucoma. Recheck Intraocular pressures in 1 week with further workup if still elevated. Hold on treatment. Discussed need for continued close observation to minimize chance of future vision loss. I have confirmed and edited as necessary the relevant HPI, ophthalmic history, ROS, and the neuro exam findings as obtained by others. I have seen and examined Melita Bella. I have discussed the case and the management of this patient's care with the Resident/Fellow, if applicable. I also have reviewed and agree with the assessment and plan as stated above and agree with all of its relevant components. [facility] 06-15-2024 History of Presen t illness Narrative Assessment and Plan H52.4 Presbyopia (primary encounter diagnosis) H52.03 Hyperopia, bilateral H52.223 Regular astigmatism of both eyes Comment: Glasses power stable. Update as desired. Z96.1 Pseudophakia of both eyes Comment: Posterior chamber intraocular lenses are well positioned and clear. H40.053 Bilateral ocular hypertension Comment: Glaucoma suspect both eyes due to ocular hypertension and positive family history (mother) of glaucoma. Recheck Intraocular pressures in 1 week with further workup if still elevated. Hold on treatment. Discussed need for continued close observation to minimize chance of future vision loss. I have confirmed and edited as necessary the relevant HPI, ophthalmic history, ROS, and the neuro exam findings as obtained by others. I have seen and examined Melita Bella. I have discussed the case and the management of this patient's care with the Resident/Fellow, if applicable. I also have reviewed and agree with the assessment and plan as stated above and agree with all of its relevant components. documented in this encounter [facility] 05-23-2014 Evaluation note Diagnosis Onset Date Hyperlipidemia chronic History of coronary artery stent placement May 23, 2014 resolved [facility] Work Phone: Evaluation noteNo assessment information available [facility] Work Phone: Evaluation note* Diagnosis Presbyopia- Primary Hyperopia, bilateral Regular astigmatism of both eyes Regular astigmatism Pseudophakia of both eyes Lens replaced by other means Bilateral ocular hypertension Borderline glaucoma with ocular hypertension [facility] Bilateral ocular hypertension- Primary 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 Preglaucoma, unspecified [facility] Diagnosis Irritant contact dermatitis due to plants, except food- Primary Contact dermatitis and other eczema due to plants (except food) documented in this encounter [facility] Work Phone: Evaluation note* Diagnosis Bilateral ocular hypertension- Primary 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 Preglaucoma, unspecified documented in this encounter [facility] [facility] Summary Purpose Family History No Family History Records Found Relationship Condition Age at Onset Recorded Date/T savage Unknown Family History?No pertinent history Unkno May 22, 2014 7:45pm Family History?No pertinent history Unkno May 22, 2014 7:45pm Relationship Condition Age at Onset Recorded Date/T savage Unknown Family History?No pertinent history Unkno wn May 22, 2014 6:45pm Family History?No pertinent history Unkno May 22, 2014 6:45pm Advance Directives No Advanced Directives Records Found Advance Directive Response Recorded Date/ Time Advance Directives No May 22 11:53am Living Will Yes April 29, 2020 11:27am Power of Child And Family Services Worker Yes April 29 0 11:27am Advance Directive Response Recorded Date/ Time Advance Directives No May 22 10:53am Living Will Yes April 29, 2020 10:27am Power of Child And Family Services Worker Yes April 29 0 10:27am Chief Complaint and Reason for Visit Chief Complaint INT LABS Chief Complaint INT LABS 1 Y FU CAD/ASHD CAD/ASHD Reason for Visit Hyperlipidemia History of coronary artery stent placement Chief Complaint E ORDER Additional Source Comments (unrecognized sect ion and content) No Status Records FoundNo Status Records FoundNo Status Records FoundNo Status Records FoundNo Status Records FoundNo Status Records FoundNo Status Records Found INFORMATION SOURCE (unrecogn ized section and content) DATE CREATED AUTHOR 07/27/2019 [facility] DATE CREATED AUTHOR AUTHOR'S ORGANIZ ATION 03/05/2022 [facility] DATE CREATED AUTHOR AUTHOR'S ORGANIZ ATION 01/07/2023 [facility] DATE CREATED AUTHOR AUTHOR'S ORGANIZ ATION 08/26/2024 [facility] DATE CREATED AUTHOR AUTHOR'S ORGANIZ ATION 09/23/2024 [facility] DATE CREATED AUTHOR AUTHOR'S ORGANIZ ATION 10/06/2024 [facility] DATE CREATED AUTHOR AUTHOR'S ORGANIZ ATION 03/03/2025 [facility] <item> Privacy Markings (unrecogniz ed section and content) Section Author: Maria Dolores Prescott PROHIBITION ON REDISCLOSURE OF CONFIDENTIAL INFORMATION This notice accompanies a disclosure of information concerning a client made to you with the consent of such client. Goals (unrecognized section and content) Goals may be documented in a n alternate sectionGoals may be documented in an alternate sectionGoals may be documented in an alternate section Care Teams (unrecognized sec tion and content) Team Status: Active Member Role Status Dates Dr. Naila Waggoner MD Family Provider Active Dr. Naila Waggoner MD Primary Care Provider Active Team Status: Inactive Member Role Status Dates Dr. Naila Waggoner MD Primary Care Provider Active Aneudy Gonzales NP, [employer] Attending Provider, Referring Pro vider Active Source Comments (unrecognize d section and content) In the event this informatio n is protected by the Federal Confidentiality of Alcohol and Drug Abuse Patient Records regulations: The Federal rules restrict any use of the information to criminally investigate or prosecute any alcohol or drug abuse patient.[facility] the event this information is protected by the Federal Confidentiality of Alcohol and Drug Abuse Patient Records regulations: The Federal rules restrict any use of the information to criminally investigate or prosecute any alcohol or drug abuse patient.[facility] the event this information is protected by the Federal Confidentiality of Alcohol and Drug Abuse Patient Records regulations: The Federal rules restrict any use of the information to criminally investigate or prosecute any alcohol or drug abuse patient.[facility] Reason for Visit (unrecogniz ed section and content) Reason Comments Yearly Exam Reason Comments Ocular Hypertension Follow Up Reason Comments Rash Skin irritation to l eft arm X 4 days Reason Comments Ocular Hypertension Evaluation Pressure check FOR RECORDS PERTAINING TO PATIENTS WHO ARE OR HAVE BEEN ENROLLED IN A CHEMICAL DEPENDENCY/SUBSTANCEABUSE PROGRAM, SOME INFORMATION MAY BE OMITTED. This clinical summary was aggregated from multiple sources. Caution should be exercised in using it in the provision of clinical care. This summary normalizes information from multiple sources, and as a consequence, information in this document may materially change the coding, format and clinical context of patient data. In addition, data may be omitted in some cases. CLINICAL DECISIONS SHOULD BE BASED ON THE PRIMARY CLINICAL RECORDS. [facility] [employer] [facility]. provides no warranty or guarantee of the accuracy or completeness of information in this document.
[2025-05-08 08:30] LABS: AST(SGOT) 25 U/L (<=37); Alanine Aminotransfer ALT/SGPT 29 U/L (<=46); Albumin, Serum 4.3 g/dL (3.4-4.8); Alkaline Phosphatase 83 U/L (40-129); Anion Gap 11 (5-15); BUN 24 mg/dL (4-19); BUN/Creat Ratio 21.6 RATIO (10-20); Calcium,Total 9.3 mg/dL (7.6-11.0); Carbon Dioxide 23.2 mmol/L (21.0-32.0); Chloride 107 mmol/L (98-108); Creatinine, Serum 1.12 mg/dL (0.70-1.20); EST Glomerular Filtration Rate 75 (>60); Globulin 2.2 g/dL (2.2-4.2); Glucose 96 mg/dL (70-99); Potassium 4.5 mmol/L (3.3-5.1); Protein, Total 6.5 g/dL (5.9-8.4); Sodium Level 141 mmol/L (133-145); Total Bilirubin 0.61 mg/dL (0.00-1.30)
[2025-05-08 11:27] LABS: Cholesterol 124 mg/dL (<=200); High Density Lipoprotein 34 mg/dL; Low Density Lipoprotein Calc. 62 mg/dL; Triglycerides 142 mg/dL; Very Low Density Lipoprotein 28 mg/dL (5-40); cholesterol:hdl ratio screen 3.65
== END | disposition home or self-care (01) ==
PROVIDERS: Referring Provider Nurse Practitioner Family; Visit Provider Nurse Practitioner Family
DX: E78.00 Pure hypercholesterolemia, unspecified (principal); I25.10 Atherosclerotic heart disease of native coronary artery without angina pectoris
CPT/HCPCS: 36415; 80053; 80061